=== PATIENT | male | born 1990 | race Caucasian/White ===

== ENCOUNTER 2021-02-24 13:26 | Inpatient (IN) | payer SELFPAY ==
[2021-02-24 13:52] VITALS: BP 120/70; PULSE 106; RESP 18; TEMP 36.6; O2SAT 97; BMI 23.0
--- NOTE | 2021-02-24 14:04 | W.ED.PSYCH ---
HPI - Psych General: Chief Complaint: Psychiatric Symptoms Stated Complaint: MHE - trauma Time Seen by Provider: 02/24/21 14:00 History of Present Illness: HPI Narrative: This patient is a 31-year-old male who presents to the emergency department complaint of auditory hallucinations. Patient states he is always kind of heard music in the background for several years as long as he can remember. But states that November he started hearing voices more distinctly getting more pronounced. Patient states he hears them as if they are in the other room until an each other and argue and threatening to kill him. Patient states is gotten so bad that he at times feels like shooting himself or hanging himself. Patient states that symptoms going on. Patient admits that he had used drugs in the past but mostly just abuses kratom at this time. States after his father he did use of mushrooms and LSD but that was in October of the year. Patient denies any recent use of alcohol or any other drugs. Will do medical evaluation treat as needed MD complaint: suicidal ideation Duration: constant and getting worse Relieving factors: none Exacerbating factors: none Associated symptoms: Reports auditory hallucinations and suicidal ideation; Deny depression Review of Systems General: Reports: 10 or more systems reviewed and unremarkable except in HPI and below Const: Denies: fever(s), chills, body aches or fatigue Eyes: Denies: change in vision or blurry vision ENMT: Denies: throat pain, hoarseness or mouth pain Card: Denies: chest pain, palpitations, irregular heart rhythm, edema, swelling of feet/ankles or lightheadedness Resp: Denies: dyspnea, productive cough, non-productive cough, wheezing or pain on inspiration GI: Denies: abdominal pain, nausea or vomiting : Denies: flank pain, dysuria, urinary frequency, urinary urgency or urinary hesitancy Musc: Denies: neck pain, back pain, extremity pain, extremity swelling, joint pain, joint swelling, joint redness, joint warmth or limited range of motion Skin/Breast: Denies: rash, pruritus, erythema or skin tenderness Neuro: Denies: headache(s), numbness in extremities or weakness in extremities Psych: Reports: paranoia, auditory hallucinations and suicidal ideation; Denies: anxiety or depression Physical Exam Const: COMMON NORMALS: no acute distress, average body habitus, patient oriented x3, no limitations, healthy appearing, alert and well nourished HENMT: COMMON NORMALS: normocephalic, atraumatic, hearing grossly normal bilaterally, external ears normal, EAC's normal, TM's normal bilaterally, Normal external nose present, Normal nasal mucous membranes and turbinates present, moist oral mucous membranes, oropharynx normal, dentition normal and gingiva normal HEAD & SCALP: normocephalic and atraumatic NOSE: Normal external nose present and Normal nasal mucous membranes and turbinates present EXTERNAL EAR: Yes external ears normal EXTERNAL AUDITORY CANAL: EAC's normal TYMPANIC MEMBRANE: TM's normal bilaterally Neck/C-Spine: COMMON NORMALS: full ROM, no lymphadenopathy, supple, no meningeal signs, no JVD, Thyroid normal and No carotid bruits THYROID: Thyroid normal Chest: COMMONS NORMALS: normal inspection of the chest, normal palpation of entire chest wall, normal inspection of the breasts and normal palpation of the breasts Breast/axilla inspection: Yes normal inspection of the breasts BREAST/AXILLA PALPATION: Yes normal palpation of the breasts Resp: COMMON NORMALS: normal respiratory effort, No retractions, No use of accessory muscles, clear to auscultation bilaterally and percussion normal AUSCULTATION: clear to auscultation bilaterally PERCUSSION: percussion normal Cardio: COMMON NORMALS: no JVD, regular rate, regular rhythm, S1 normal heart sound present, S2 normal heart sound present, No gallops present (Cardio), No clicks present (Cardio), No murmurs present (Cardio), No rub (Cardio) and Peripheral pulses 2+ throughout RATE: regular rate RHYTHM: regular rhythm HEART SOUNDS: S1 normal heart sound present and S2 normal heart sound present PERIPHERAL PULSES: Peripheral pulses 2+ throughout GI: COMMON NORMALS: Normal to inspection, nondistended, normoactive bowel sounds present, Soft to palpation, non-tender, No hepatosplenomegaly present, no masses and no bruits PALPATION: Yes Soft to palpation and Yes No hepatosplenomegaly present : COMMON NORMALS: Yes no CVA tenderness BLADDER/KIDNEY EXAM: Yes no CVA tenderness Back/Pelvis: COMMON NORMALS: no CVA tenderness, thoracic and lumbar spine normal to inspection, no thoracic nor lumbar tenderness, thoraco-lumbar ROM normal and straight leg raise negative bilaterally Extremity: COMMON NORMALS: normal to inspection, full ROM, capillary refill normal, no joint enlargement, no clubbing, cyanosis or edema, no calf tenderness and no pedal edema Neuro: COMMON NORMALS: patient oriented x3 SENSORIUM/ORIENTATION: Yes alert MENINGEAL SIGNS: Yes no meningeal signs Psych: COMMON NORMALS: mental status grossly normal and cooperative ATTITUDE: Yes calm THOUGHT CONTENT: Yes Suicidality present and Yes Hallucination(s) present auditory Course Reevaluation(s): Reevaluation #1: Patient is agreeable for admission for suicidal ideation. We also did discuss concerning for possible paranoid schizophrenia and auditory hallucinations. Time: 16:03 Consultations: Consultation #1: I did discuss at length with Dr. Atkinson about findings. Patient is agreeable for admission. Dr. Atkinson accepts him to the neuropsych floor for further evaluation and testing for auditory hallucinations and concerning for possible paranoid schizophrenia. Suicidal ideation. Time: 16:03 Vital Signs: Vital signs: Vital Signs Temperature 97.9 F 02/24/21 13:52 Pulse Rate 106 H 02/24/21 13:52 Respiratory Rate 18 02/24/21 13:52 Blood Pressure 120/70 02/24/21 13:52 Pulse Oximetry 97 02/24/21 13:52 MDM - Psych MDM Narrative: Medical decision making narrative: This patient is a 31-year-old male who presents to the emergency department complaint of auditory hallucinations. Patient states he is always kind of heard music in the background for several years as long as he can remember. But states that November he started hearing voices more distinctly getting more pronounced. Patient states he hears them as if they are in the other room until an each other and argue and threatening to kill him. Patient states is gotten so bad that he at times feels like shooting himself or hanging himself. Patient states that symptoms going on. Patient admits that he had used drugs in the past but mostly just abuses kratom at this time. States after his father he did use of mushrooms and LSD but that was in October of the year. Patient denies any recent use of alcohol or any other drugs. I did discuss at length with Dr. Atkinson about findings. Patient is agreeable for admission. Dr. Atkinson accepts him to the neuropsych floor for further evaluation and testing for auditory hallucinations and concerning for possible paranoid schizophrenia. Suicidal ideation. Lab Data: Labs: Lab Results 02/24/21 02/24/21 02/24/21 Range/Units 14:15 14:15 15:06 WBC 10.3 H (4.0-10.0) 10^3/ uL RBC 4.96 (4.1-5.3) 10^6/u L Hgb 16.0 (11.7-16.6) g/dL Hct 47.4 (42.0-52.0) % MCV 95.6 H (80-94) fL MCH 32.3 (28.0-34.0) pg MCHC 33.8 (30.0-36.0) g/dL RDW 12.9 (12.1-15.1) % Plt Count 228 (130-400) 10^3/c mm MPV 10.5 H (7.4-10.4) fL Neut % (Auto) 74.5 % Lymph % (Auto) 17.2 % [place] % (Auto) 7.7 % Eos % (Auto) 0.1 % Baso % (Auto) 0.2 % Neut # (Auto) 7.70 (1.8-7.7) 10^3/u L Lymph # (Auto) 1.8 (0.8-4.8) 10^3/u L [place] # (Auto) 0.8 (0.2-0.9) 10^3/u L Eos # (Auto) 0.0 (0.0-0.8) 10^3/u L Baso # (Auto) 0.0 (0.0-0.1) 10^3/u L Nucleated RBC % (a uto) 0 % Nucleated RBCs # 0.0 /100WBC Sodium 144 (136-145) mmol/L Potassium 3.9 (3.5-5.1) mmol/L Chloride 105 (98-107) mmol/L Carbon Dioxide 27 (22-29) mmol/L Anion Gap 15.9 (5-19) BUN 6 (6-20) mg/dL Creatinine 0.8 (0.7-1.2) mg/dL GFR Calculation 112.0 (90-130) mL/min Glucose 71 (65-115) mg/dL Calculated Osmolal ity 294 (285-295) mOsm/k g Calcium 9.1 (8.5-10.5) mg/dL Total Bilirubin 0.5 (0.15-1.2) mg/dL AST 13 (0-40) U/L ALT 10 (0-41) U/L Alkaline Phosphata se 73 (40-130) IU/L Total Protein 6.9 (6.6-8.7) g/dL Albumin 4.3 (3.5-5.2) g/dL Globulin 2.6 (1.3-4.6) g/dL TSH 0.64 (0.27-4.20) uIU/ mL Urine Color Straw (Yellow) Urine Appearance Clear (CLEAR) Urine pH 5 (5-7) Ur Specific Gravit y 1.020 (1.005-1.030) Urine Protein Neg (Negative) Urine Glucose (UA) Norm (Normal) Urine Ketones Negative (Negative) Urine Blood Neg (Negative) Urine Nitrate Negative (Negative) Urine Bilirubin 1+ H (Negative) Urine Urobilinogen 1 H (Negative) mg/dL Ur Leukocyte Rafaela ase Negative (Negative) Salicylates < 0.3 L (3-10) mg/dL Urine Opiates Scre en (Negative) ng/mL Acetaminophen < 5.0 L (10-30) ug/mL Ur Barbiturates Sc reen (Negative) ng/mL Ur Phencyclidine S crn (Negative) ng/mL Ur Amphetamines Sc reen (Negative) ng/mL U Benzodiazepines Scrn (Negative) ng/mL Urine Cocaine Scre en (Negative) ng/mL U Marijuana (THC) Screen (Negative) ng/mL Ethyl Alcohol < 10 (0-10) mg/dL 02/24/21 Range/Units 15:06 WBC (4.0-10.0) 10^3/ uL RBC (4.1-5.3) 10^6/u L Hgb (11.7-16.6) g/dL Hct (42.0-52.0) % MCV (80-94) fL MCH (28.0-34.0) pg MCHC (30.0-36.0) g/dL RDW (12.1-15.1) % Plt Count (130-400) 10^3/c mm MPV (7.4-10.4) fL Neut % (Auto) % Lymph % (Auto) % [place] % (Auto) % Eos % (Auto) % Baso % (Auto) % Neut # (Auto) (1.8-7.7) 10^3/u L Lymph # (Auto) (0.8-4.8) 10^3/u L [place] # (Auto) (0.2-0.9) 10^3/u L Eos # (Auto) (0.0-0.8) 10^3/u L Baso # (Auto) (0.0-0.1) 10^3/u L Nucleated RBC % (a uto) % Nucleated RBCs # /100WBC Sodium (136-145) mmol/L Potassium (3.5-5.1) mmol/L Chloride (98-107) mmol/L Carbon Dioxide (22-29) mmol/L Anion Gap (5-19) BUN (6-20) mg/dL Creatinine (0.7-1.2) mg/dL GFR Calculation (90-130) mL/min Glucose (65-115) mg/dL Calculated Osmolal ity (285-295) mOsm/k g Calcium (8.5-10.5) mg/dL Total Bilirubin (0.15-1.2) mg/dL AST (0-40) U/L ALT (0-41) U/L Alkaline Phosphata se (40-130) IU/L Total Protein (6.6-8.7) g/dL Albumin (3.5-5.2) g/dL Globulin (1.3-4.6) g/dL TSH (0.27-4.20) uIU/ mL Urine Color (Yellow) Urine Appearance (CLEAR) Urine pH (5-7) Ur Specific Gravit y (1.005-1.030) Urine Protein (Negative) Urine Glucose (UA) (Normal) Urine Ketones (Negative) Urine Blood (Negative) Urine Nitrate (Negative) Urine Bilirubin (Negative) Urine Urobilinogen (Negative) mg/dL Ur Leukocyte Rafaela ase (Negative) Salicylates (3-10) mg/dL Urine Opiates Scre en Negative (Negative) ng/mL Acetaminophen (10-30) ug/mL Ur Barbiturates Sc reen Negative (Negative) ng/mL Ur Phencyclidine S crn Negative (Negative) ng/mL Ur Amphetamines Sc reen Negative (Negative) ng/mL U Benzodiazepines Scrn Negative (Negative) ng/mL Urine Cocaine Scre en Negative (Negative) ng/mL U Marijuana (THC) Screen Positive H (Negative) ng/mL Ethyl Alcohol (0-10) mg/dL Discharge Plan Discharge Patient Disposition: Placed in Observation Clinical Impression: Suicidal ideation, Auditory hallucinations Condition: Stable Prescriptions: No Action No Known Home Medications RF: 0 Coding Level of Care Code ED General Repair Mechanic for Silvio Fwd Exam Comprehensive
[2021-02-24 14:26] LABS: Basophils % 0.2 %; Eosinophils % 0.1 %; Hematocrit 47.4 % (42.0-52.0); Lymphocytes # 1.8 10^3/uL (0.8-4.8); Lymphocytes % 17.2 %; Mean Corpuscular HGB Conc 33.8 g/dL (30.0-36.0); Mean Corpuscular Hemoglobin 32.3 pg (28.0-34.0); Mean Corpuscular Volume 95.6 fL (80-94); Mean Platelet Volume 10.5 fL (7.4-10.4); Monocytes # 0.8 10^3/uL (0.2-0.9); Monocytes % 7.7 %; Neutrophils % 74.5 %; Nucleated Red Blood Cells % 0 %; Platelet Count 228 10^3/cmm (130-400); Red Blood Count 4.96 10^6/uL (4.1-5.3); Red Cell Distribution Width 12.9 % (12.1-15.1); White Blood Count 10.3 10^3/uL (4.0-10.0)
[2021-02-24 15:07] LABS: Alanine Aminotransferase 10 U/L (0-41); Albumin Level 4.3 g/dL (3.5-5.2); Alkaline Phosphatase 73 IU/L (40-130); Anion Gap 15.9 (5-19); Aspartate Amino Transferase 13 U/L (0-40); Blood Urea Nitrogen 6 mg/dL (6-20); Calcium 9.1 mg/dL (8.5-10.5); Carbon Dioxide 27 mmol/L (22-29); Chloride 105 mmol/L (98-107); Globulin 2.6 g/dL (1.3-4.6); Glucose 71 mg/dL (65-115); Osmolality Calculated 294 mOsm/kg (285-295); Potassium 3.9 mmol/L (3.5-5.1); Sodium 144 mmol/L (136-145); Thyroid Stimulating Hormone 0.64 uIU/mL (0.27-4.20); Total Bilirubin 0.5 mg/dL (0.15-1.2); Total Protein 6.9 g/dL (6.6-8.7)
[2021-02-24 15:20] LABS: Acetaminophen < 5.0 ug/mL (10-30); Alcohol Level < 10 mg/dL (0-10); Salicylate < 0.3 mg/dL (3-10)
[2021-02-24 15:23] LABS: Add Urine Microscopic? NO; Charge for UA Resulting for Rev
[2021-02-24 15:30] LABS: Urine Appearance Clear (CLEAR); Urine Color Straw (Yellow); pH Urine 5 (5-7)
[2021-02-24 15:31] LABS: Bilirubin Urine 1+ (Negative); Blood Urine Neg (Negative); Glucose Urine UA Norm (Normal); Ketones Urine Negative (Negative); Leukocyte Esterase Urine Negative (Negative); Nitrate Urine Negative (Negative); Protein Urine Neg (Negative); Urobilinogen Urine 1 mg/dL (Negative)
[2021-02-24 15:34] LABS: Amphetamines Screen Urine Negative (Negative); Barbiturates Screen Urine Negative (Negative); Benzodiazepines Screen Urine Negative (Negative); Cocaine Screen Urine Negative (Negative); Opiate Screen Urine Negative (Negative); PCP Screen Urine Negative (Negative); THC Screen Urine Positive (Negative)
[2021-02-24 16:36] VITALS: RESP 18; TEMP 36.6; O2SAT 97
[2021-02-24 16:59] VITALS: BP 106/68; PULSE 111; RESP 18; TEMP 36.9; O2SAT 96
[2021-02-24 22:00] VITALS: BP 96/59; PULSE 65; RESP 20; TEMP 36.8; O2SAT 96
[2021-02-25 06:00] VITALS: BP 110/72; PULSE 76; RESP 18; TEMP 36.8; O2SAT 98
[2021-02-25] MEDS: nicotine 2 mg Gum BUCCAL ×3 (11:45→19:11)
[2021-02-25 14:00] VITALS: BP 100/64; PULSE 80; RESP 18; TEMP 36.3; O2SAT 97
--- NOTE | 2021-02-25 14:10 | PM.NHP ---
Providers/Chief Complaint Admitting Physician: Puma Atkinson MD Chief Complaint: MHE - trauma HPI NPU History of Present Illness Bret Batista is a 31 year old male who presented to the emergency department the following report: Chief Complaint: Psychiatric Symptoms Stated Complaint: MHE - trauma Time Seen by Provider: 02/24/21 14:00 History of Present Illness: HPI Narrative: This patient is a 31-year-old male who presents to the emergency department complaint of auditory hallucinations. Patient states he is always kind of heard music in the background for several years as long as he can remember. But states that November he started hearing voices more distinctly getting more pronounced. Patient states he hears them as if they are in the other room until an each other and argue and threatening to kill him. Patient states is gotten so bad that he at times feels like shooting himself or hanging himself. Patient states that symptoms going on. Patient admits that he had used drugs in the past but mostly just abuses kratom at this time. States after his father he did use of mushrooms and LSD but that was in October of the year. Patient denies any recent use of alcohol or any other drugs. Will do medical evaluation treat as needed complaint: suicidal ideation Duration: constant and getting worse Relieving factors: none Exacerbating factors: none Associated symptoms: Reports auditory hallucinations and suicidal ideation; Deny depression. He presented to the neuropsychiatric for definitive treatment of those issues. He presents today reporting that he has had 3 past psychiatric hospitalizations here records do show that to be accurate between the years of 2007 in 2017. He denies significant outpatient services but there are some records from visits he had. Particularly in assessment from 01/30/2017 is included below for context. He denies substantive changes since that evaluation. He reports he smokes a pack of cigarettes to 2 pack cigarettes a day if he stressed reports drinking alcohol sometimes and having them on a but none recently he denies any other illicit drug use. He never had a DUI or been to a rehab. His UDS was notably positive for cannabis. He reports a history of a suicide attempt occurred in the past but he was reportedly drunk and did not remember his behaviors. He reports that some of the challenges that bring him here today is that he had a overwhelmed run of losses related to general illness and Covid with multiple family members dying of Covid, his mother recently passing away and him just feeling overwhelmed with an existential crisis and the prospect of living in this area alone. We discussed the risks, benefits and alternatives of considering Zyprexa for his voices and he understood and agreed to consider it as is documented in this note. Per his 01/30/2017 [facility] outpatient evaluation: In: 1000 Out: 1052 Settings: Office Patient Marital Status: Patient Sex: male Patient Race: Sexual Orientation: Heterosexual [place]erral [place] [facility] [facility] [place] History Primary Care Provider None reported Other Healthcare Providers: None reported Last Physical Exam: Unknown Current Medications None stopped taking them 4 days ago because of the side effects. Food/Drug Allergies: Coded Allergies: TRAZODONE (Verified Allergy, Unknown, 01/10/17) Adverse Reaction to Medication Trazadone Client's Medical History: Surgical Procedure (tubes in ears, broken arms, tonsils) Complementary Health Approach None reported [facility] Assessment 8 10/30/16 Psychosocial History Chief Complaint Client reports: followup from hospital . History of Present Illness: been hospitalized 3 times before, was in there recently, cry easily, have anxiety frequently, started when I was a child, lost mother at age 15 not sure if it was suicide or a overdose,turned to alcohol to help calm me down and it became a habit, restless and on edge, don't sleep very good, low energy, easily distracted, get annoyed at others easily, irritable, certain situations really set off the anxiety, even as a child I would get to shaking so bad I would get sent home, when I was hospitalized my old lady had left and I went on a perez, racing thoughts, life was going well until 4 weeks ago, that was when she left with children and drained bank account and went to [place], I lost my job, because of getting thrown in [employer], had a nice home. Childhood/Family History: Individual Served reports pertinent childhood/family history to include had a crazy childhood was passed around alot, mom and dad would take off with me, raised here part of the time, 2 brothers and 2 sisters, estranged from and children right now . Current/History Abuse/Trauma: None Reported Details of Abuse/Trauma: None reported [facility] Assessment 9 10/30/16 Psychosocial History History: Client denies service Cultural Background NA Level of Completed Education: GED Completed History of Education Dropped out in 11th grade because I moved around so much, obtained my GED. 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 Legal Status/History: Current legal issues reported Legal Issues Reported: Other (restraining order) Ability to Care for Self: Reports being able to care for self Current Living Environment: Parent/Immediate Family Social/Peer Setting: Family Spiritual Pursuits: Nonreligious/Secular Leisure/Recreational: write, musician, play guitar. Community Resources: Utilizing Family, Utilizing Friends, Utilizing School Individual's Obstacles: Limited Income, Chaotic Lifestyle, Poor Support System Individual Needs: need to get stable again. Individual's Strengths/Skills: Cooperative, Seeks Treatment, Articulate, Creative, Sense of Humor, Insightful, Open Minded Family Psychiatric History: Other (Alzheimers) Meds NPU Home Medications Medication Instructions Recorded Confirmed Last Taken Type No Known Home Medications 02/24/21 02/24/21 Unknown History Allergies Allergy/AdvReac Type Severity Reaction Status Date / Time trazodone Allergy Unknown Unknown Verified 02/24/21 14:44 Mental Status Exam MSE Comments: This is a well-nourished, well-developed white male in hospital scrubs with adequate grooming and eye contact. No abnormal movements except for mild psychomotor retardation. Cooperative with exam in mild distress. Speech was decreased rate and volume. Mood described as depressed, affect odd. Thought process organized, thought: Patient denied current suicidal or homicidal ideation, there were no delusions reported but some guardedness and paranoia seems present, he endorsed auditory hallucinations. Attention and concentration appeared intact and memory appeared reliable but none were formally tested. He is alert and oriented x3. Insight and judgment are limited impulse control is limited. Vitals/I&O/Wt Last Vital Signs Temp 97.3 F L 02/25/21 14:00 Pulse 80 02/25/21 14:00 Resp 18 02/25/21 14:00 BP 100/64 02/25/21 14:00 Pulse Ox 97 02/25/21 14:00 Weight last 48 hrs Weight 74.843 kg Data NPU : 02/24/21 14:15 02/24/21 14:15 A&P Assessment and plan (1) Suicidal ideation: Status: Acute (2) Auditory hallucinations: Status: Acute (3) Psychosis: Status: Acute (4) Bereavement: Status: Acute Additional A&P Information This is a 31-year-old white male with a long history of auditory hallucinations and history of inpatient services with limited outpatient services here in [place] who presents with recent losses and increasing intensity of his perceptual disturbances considering medication. 1. Continue current medication. 2. Continue every 15 minute checks for safety. 3. Encourage individual, group and milieu therapies. 4. Encourage sober living treatment after discharge at the highest level of care to which he is willing to commit. Involuntary Hold Information 96 Hour Hold: 96 Hour Involuntary Admission: No Attestations NPU Medical Necessity Statement*: Inpatient hospitalization is medically necessary and the clinically appropriate intervention at this time. We will monitor medications and make changes as indicated. Patient will be in the hospital for over two midnights. Likely length of stay 3 to 5 days. Coding Level of Care Code Acute Manager Search for Silvio Ramirez Diagnoses Suicidal ideation R45.851 Auditory hallucinations R44.0 Psychosis F29 Bereavement Z63.4
[2021-02-25] MEDS: OLANZapine 5 mg ODT PO (20:48)
[2021-02-25] MEDS: hyDROXYzine 25 mg Capsule 50 MG PO (20:48)
[2021-02-25 22:00] VITALS: BP 121/73; PULSE 85; RESP 18; TEMP 36.6; O2SAT 98
--- NOTE | 2021-02-25 22:49 | PC.NURSE ---
A, pt requested something for sleep and anxiety please . Trazodone 50mg po and Vistaril 50mg po given at that time. pt is now resting quietly with both eyes closed.
[2021-02-26 06:00] VITALS: BP 99/60; PULSE 63; RESP 15; TEMP 36.4; O2SAT 97
[2021-02-26] MEDS: nicotine 2 mg Gum BUCCAL (12:52)
[2021-02-26 14:00] VITALS: BP 113/69; PULSE 90; RESP 20; TEMP 36.5; O2SAT 99
[2021-02-26] MEDS: hyDROXYzine 25 mg Capsule 50 MG PO (14:38)
--- NOTE | 2021-02-26 14:40 | PC.NURSE ---
PRN VISTARIL 50 MG GIVEN PO PER PT C/O ANXIETY. WILL CONT TO MONITOR.
[2021-02-26] MEDS: OLANZapine 5 mg ODT PO (15:24)
--- NOTE | 2021-02-26 15:25 | PC.NURSE ---
PRN ZYPREXA ZYDIS, 5 MG GIVEN PO PER PHYSICIAN ORDER.
--- NOTE | 2021-02-26 17:55 | PM.NPN ---
Subjective NPU Subjective: Interval history: Bret presents today reporting that he is doing okay. We we will wait to see improvement except he is hopeful. He reports a as needed medication that he had been just okay. He reports that he really wants to feel better and get rid of the voices though he says he may miss the music. He is eating okay, but sleep still has something to be desired. Mental Status Exam MSE Comments: This is a well-nourished, well-developed white male in hospital scrubs with adequate grooming and eye contact. No abnormal movements except for mild psychomotor retardation. Cooperative with exam in mild distress. Speech was decreased rate and volume. Mood described as depressed, affect odd. Thought process organized, thought: Patient denied current suicidal or homicidal ideation, there were no delusions reported but some guardedness and paranoia seems present, he endorsed auditory hallucinations. Attention and concentration appeared intact and memory appeared reliable but none were formally tested. He is alert and oriented x3. Insight and judgment are limited impulse control is limited. Vitals/I&O/Wt Last Vital Signs Temp 98.6 F 02/26/21 20:34 Pulse 71 02/26/21 20:34 Resp 16 02/26/21 20:34 BP 109/57 02/26/21 20:34 Pulse Ox 96 02/26/21 20:34 Data NPU : 02/24/21 14:15 02/24/21 14:15 A&P Additional A&P Information (1) Suicidal ideation: (2) Auditory hallucinations: (3) Psychosis: (4) Bereavement: Additional A&P Information This is a 31-year-old white male with a long history of auditory hallucinations and history of inpatient services with limited outpatient services here in [place] who presents with recent losses and increasing intensity of his perceptual disturbances considering medication. 1. Continue current medication. 2. Continue every 15 minute checks for safety. 3. Encourage individual, group and milieu therapies. 4. Encourage sober living treatment after discharge at the highest level of care to which he is willing to commit. Involuntary Hold Information 96 Hour Hold: 96 Hour Involuntary Admission: No Attestations NPU Medical Necessity Statement*: Inpatient hospitalization is medically necessary and the clinically appropriate intervention at this time. We will monitor medications and make changes as indicated. Likely length of stay 2-4 days. Coding Level of Care Code Acute Global Human Resources Director for Chg Fwd
[2021-02-26 20:34] VITALS: BP 109/57; PULSE 71; RESP 16; TEMP 37; O2SAT 96
[2021-02-26] MEDS: OLANZapine 10 mg TABLET PO (21:21)
[2021-02-27 06:00] VITALS: BP 100/64; PULSE 62; RESP 16; TEMP 36.6; O2SAT 97
[2021-02-27] MEDS: nicotine 2 mg Gum BUCCAL ×2 (08:13→11:08)
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
[2021-02-27 13:09] VITALS: BP 100/64; PULSE 62; RESP 16; TEMP 36.6; O2SAT 97
== END 2021-02-27 13:12 | disposition home or self-care (01) | DRG 885 ==
LOC: ER 16:37 → NP 02-25 13:01
PROVIDERS: Admitting Provider Psychiatry & Neurology Psychiatry; Emergency Provider Emergency Medicine; Visit Provider Psychiatry & Neurology Psychiatry
DX: F29 Unspecified psychosis not due to a substance or known physiological condition (principal); R45.851 Suicidal ideations; F17.210 Nicotine dependence, cigarettes, uncomplicated; F10.10 Alcohol abuse, uncomplicated; F12.90 Cannabis use, unspecified, uncomplicated; Z63.4 Disappearance and death of family member
CPT/HCPCS: 80053; 80306; 80307; 81003; 84443; 85025; 99285; G0378

== ENCOUNTER 2021-06-23 01:36 | Inpatient (IN) | payer MEDICAID, SELFPAY ==
[2021-06-23 01:42] VITALS: BP 116/82; PULSE 95; RESP 18; TEMP 36.8; O2SAT 97; BMI 24.4
[2021-06-23 02:42] LABS: Basophils % 0.3 %; Hematocrit 44.9 % (42.0-52.0); Hemoglobin 15.6 g/dL (11.7-16.6); Lymphocytes # 2.9 10^3/uL (0.8-4.8); Lymphocytes % 38.9 %; Mean Corpuscular HGB Conc 34.7 g/dL (30.0-36.0); Mean Corpuscular Hemoglobin 31.8 pg (28.0-34.0); Mean Corpuscular Volume 91.4 fl (80-94); Mean Platelet Volume 10.9 fL (7.4-10.4); Monocytes # 0.7 10^3/uL (0.2-0.9); Monocytes % 9.3 %; Neutrophils # 3.75 10^3/uL (1.8-7.7); Neutrophils % 51.2 %; Nucleated Red Blood Cells % 0 %; Platelet Count 191 10^3/cmm (130-400); Red Blood Count 4.91 10^6/uL (4.1-5.3); Red Cell Distribution Width 13.3 % (12.1-15.1); White Blood Count 7.3 10^3/uL (4.0-10.0)
[2021-06-23 03:07] LABS: Alanine Aminotransferase 8 U/L (0-41); Albumin Level 4.2 g/dL (3.5-5.2); Alkaline Phosphatase 62 IU/L (40-130); Anion Gap 15.1 (5-19); Aspartate Amino Transferase 8 U/L (0-40); Blood Urea Nitrogen 12 mg/dL (6-20); Calcium 9.1 mg/dL (8.5-10.5); Carbon Dioxide 23 mmol/L (22-29); Chloride 104 mmol/L (98-107); Creatinine Clr Calc Pharmacy 144.2468; Globulin 2.4 g/dL (1.3-4.6); Glucose 126 mg/dL (65-115); Osmolality Calculated 287 mOsm/kg (285-295); Potassium 4.1 mmol/L (3.5-5.1); Salicylate 0.5 mg/dL (3-10); Sodium 138 mmol/L (136-145); Total Bilirubin 0.3 mg/dL (0.15-1.2); Total Protein 6.6 g/dL (6.6-8.7)
[2021-06-23 03:10] LABS: Acetaminophen < 5.0 ug/mL (10-30); Alcohol Level < 10 mg/dL (0-10)
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
[2021-06-23 05:19] VITALS: BP 119/72; PULSE 92; RESP 16; O2SAT 97
[2021-06-23 05:38] VITALS: BP 105/71; PULSE 72; RESP 17; TEMP 36.5; O2SAT 97
[2021-06-23 06:00] VITALS: BP 105/71; PULSE 72; RESP 17; TEMP 36.5; O2SAT 97
--- NOTE | 2021-06-23 06:33 | PC.NURSE ---
Admission note. Patient arrived to unit on 96 hour hold d/t psychosis. Patient states he is unsure why he is here, he was walking down the road and copper tapper picked him up. States copper tapper told him that Mom called about him yesterday. Patient tense and irritable at this time but did answer assessment questions. Answers short, one word answers. Poor eye contact, minimal interaction. Denies SI/HI or AVH. Reports recreational use of meth. Unable to state last use or how often, did say 1 gm/wk. Daily use of Cratum with last use a few days ago.
--- NOTE | 2021-06-23 09:39 | PC.NURSE ---
PATIENT MILDLY AGITATED, ON PHONE WITH FAMILY MEMBER. HAS A COPY OF HIS PATIENT RIGHTS REGARDING HIS 96 HOUR HOLD AND IS REQUESTING THE REASON AND PROOF OF WHY HE IS IN THE HOSPITAL. COPY OF AFFIDAVIT GIVEN TO PATIENT.
[2021-06-23] MEDS: nicotine 21 mg Patch 1 PATCH TRANSDERMA (10:12)
--- NOTE | 2021-06-23 12:32 | PC.NURSE ---
PATIENT AGREED TO TAKE A PHONE CALL FROM HIS SISTER-MAX. HE ALSO WANTED HER ADDED TO HIS RIGO LIST.
--- NOTE | 2021-06-23 12:32 | PC.NURSE ---
PATIENT CONTINUES TO BECOME EASILY AGITATED OVER THE STATUS OF HIS HIS ADMISSION. HE DOES NOT FEEL HE SHOULD BE HERE AND IS BEING HELD AGAINST HIS WILL. HE HAS BEEN GIVEN A COPY OF HIS 96 HOUR PAPERWORK, AFFIDAVIT AND PATIENT RIGHTS. HE CALMS AND RETURNS TO HIS ROOM.
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
[2021-06-23 14:00] VITALS: BP 127/78; PULSE 96; RESP 17; TEMP 36.6; O2SAT 97
--- NOTE | 2021-06-23 15:23 | P.HP_ITS ---
Providers/Chief Complaint Admitting Physician: Antonio Arizmendi MD Chief Complaint: 96 hour hold? HPI NPU History of Present Illness Bret Batista is a 31 year old male who was hospitalized here 4 months ago at the end of January 2021 with complaints of auditory hallucinations. He was admitted to the NPU after being brought in to the ED yesterday by the police because he had paranoid delusions and thoughts as well as plans to kill people he felt were stalking him. The ED note states: 31-year-old male with a history of substance abuse and psychosis was picked up by police this morning. The patient complained police of acquaintances stalking him. He told the officer that they had buried routers around to track him and shoot microwaves at him. He then threatened to kill these acquaintances. The patient denies any recent illness, fever, etc. The patient is quite guarded in his presentation. At one point he tells me that he is not going to describe what he is experiencing because if I try to explain that I sound crazy. It is not a hallucination, and I do not want to take medicine. However he does say that there are people who tell him that something is going to happen, and then it does happen. For instance, he says they may tell him that someone will come to his house singing, and then they do. He says that these people, which are likely auditory hallucinations, told him that he was going to get arrested by the police yesterday, and then he did. He does tell me that the mother f----rs follow me up there [to work] so I cannot go there anymore. The police won't investigate it. The patient denies current alcohol use. He says he uses methamphetamines recreationally to get out of bed. He says he also uses kratom on a daily basis but asserts that the kratom is not the cause of his fears of the stalkers. He denies other current drug use. He says he smokes 1 pack of cigarettes per day. The affidavit from Officer Brendan Sepulveda states that the patient told the officer he was being stalked by a group of people from [place]. He told the officer he was not wearing shoes as they were tracking his shoes and electrifying the shoes as he walked. He told the officer that the individuals that were stalking him had buried routers all over town and that they were using body scanners on everyone and making them go crazy. He further said that the stalkers were using lasers and infrared to attempt to burn down houses that he is in and that he watched them electrify his son. He said all this was happening right now, and said that they just blinded him with the laser at that moment. He tried to point out to the officer where they were standing, but the officer saw no one there. The patient told the officer that he was going to find the people and kill them as it was the only way to stop them from stalking the entire town. When the officer asked him again, he stated he was going to kill the 2 males that were stalking him. The patient's sister called the unit and spoke to the nurse, as documented in the EHR. She says he is afraid to take his psychiatric medicine because of an incident in which his blood pressure dropped and he felt like he was dying. She said he fired a gun in her house about 4 weeks ago, and then thought he had shot and killed someone. She said that when he got out of the hospital after his last 96-hour hold, he threw himself on the train track. She says that this past week he was talking to his son about a group of people who were stalking him and telling him to sacrifice himself. He is afraid to be in the sunlight because the rays are laser beams which will kill him. He says that the floors of his sister's house will electrocute him. She is afraid that if he is released from the hospital too soon something bad is going to happen to him or someone else. His sister is also concerned that he has not addressed the grief from his father's in August 2020 and both grandparents in May and May 2020. Past medical history: The patient denies any medical issues or past surgeries. Family history: The patient says his maternal grandfather committed suicide before the patient was born. Social history: The patient says he was born in [place], [place] and dropped out of school in the 11th grade so he could play in a band in the [place] area. He eventually got his GED. He has been twice and is from his second . He says he has 1 son who is 5 years old, and he shares joint custody with his . He says his son spends half of his time with him. He says he is unable to work because of the stalking described above. Admission information from 02/25/2021 is included here for further context: HPI Narrative from ED: This patient is a 31-year-old male who presents to the emergency department complaint of auditory hallucinations. Patient states he is always kind of heard music in the background for several years as long as he can remember. But states that November he started hearing voices more distinctly getting more pronounced. Patient states he hears them as if they are in the other room until an each other and argue and threatening to kill him. Patient states is gotten so bad that he at times feels like shooting himself or hanging himself. Patient states that symptoms going on. Patient admits that he had used drugs in the past but mostly just abuses kratom at this time. States after his father he did use of mushrooms and LSD but that was in October of the year. Patient denies any recent use of alcohol or any other drugs. Will do medical evaluation treat as needed Dr Atkinson' note: He presented to the neuropsychiatric for definitive treatment of those issues. He presents today reporting that he has had 3 past psychiatric hospitalizations here records do show that to be accurate between the years of 2007 in 2016. He denies significant outpatient services but there are some records from visits he had. Particularly in assessment from 01/30/2017 is included below for context. He denies substantive changes since that evaluation. He reports he smokes a pack of cigarettes to 2 pack cigarettes a day if he stressed reports drinking alcohol sometimes and having them on a but none recently he denies any other illicit drug use. He never had a DUI or been to a rehab. His UDS was notably positive for cannabis. He reports a history of a suicide attempt occurred in the past but he was reportedly drunk and did not remember his behaviors. He reports that some of the challenges that bring him h ere today is that he had a overwhelmed run of losses related to general illness and Covid with multiple family members dying of Covid, his mother recently passing away and him just feeling overwhelmed with an existential crisis and the prospect of living in this area alone. We discussed the risks, benefits and alternatives of considering Zyprexa for his voices and he understood and agreed to consider it as is documented in this note. Per his 01/30/2017 [facility] outpatient evaluation: In: 1000 Out: 1052 Settings: Office Patient Marital Status: Patient Sex: male Patient Race: Sexual Orientation: Heterosexual Referral Source [facility] [place] [facility] Medical History Primary Care Provider None reported Other Healthcare Providers: None reported Last Physical Exam: Unknown Current Medications None stopped taking them 4 days ago because of the side effects. Food/Drug Allergies: Coded Allergies: TRAZODONE (Verified Allergy, Unknown, 01/10/17) Adverse Reaction to Medication Trazadone Client's Medical History: Surgical Procedure (tubes in ears, broken arms, tonsils) Complementary Health Approach None reported [facility] Assessment 8 10/30/16 Psychosocial History Chief Complaint Client reports: followup from hospital . History of Present Illness: been hospitalized 3 times before, was in there recently, cry easily, have anxiety frequently, started when I was a child, lost mother at age 15 not sure if it was suicide or a overdose,turned to alcohol to help calm me down and it became a habit, restless and on edge, don't sleep very good, low energy, easily distracted, get annoyed at others easily, irritable, certain situations really set off the anxiety, even as a child I would get to shaking so bad I would get sent home, when I was hospitalized my old lady had left and I went on a perez, racing thoughts, life was going well until 4 weeks ago, that was when she left with children and drained bank account and went to [place], I lost my job, because of getting thrown in snf, had a nice home. Childhood/Family History: Individual Served reports pertinent childhood/family history to include had a crazy childhood was passed around alot, mom and dad would take off with me, ra ised here part of the time, 2 brothers and 2 sisters, estranged from and children right now . Current/History Abuse/Trauma: None Reported Details of Abuse/Trauma: None reported [facility] Assessment 9 10/30/16 Psychosocial History History: Client denies service Cultural Background NA Level of Completed Education: GED Completed History of Education Dropped out in 11th grade because I moved around so much, obtained my GED. 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 Legal Status/History: Current legal issues reported Legal Issues Reported: Other (restraining order) Ability to Care for Self: Reports being able to care for self Current Living Environment: Parent/Immediate Family Social/Peer Setting: Family Spiritual Pursuits: Nonreligious/Secular Leisure/Recreational: write, musician, play guitar. Community Resources: Utilizing Family, Utilizing Friends, Utilizing School Individual's Obstacles: Limited Income, Chaotic Lifestyle, Poor Support System Individual Needs: need to get stable again. Individual's Strengths/Skills: Cooperative, Seeks Treatment, Articulate, Creative, Sense of Humor, Insightful, Open Minded Family Psychiatric History: Other (Alzheimers) Meds NPU Home Medications Medication Instructions Recorded Confirmed Last Taken Type No Known Home Medications 02/24/21 06/23/21 Unknown History Allergies Allergy/AdvReac Type Severity Reaction Status Date / Time trazodone Allergy Unknown Unknown Verified 02/24/21 14:44 Mental Status Exam MSE Comments: I met with the patient in his room with the door open, and he was dressed in hospital scrubs and sloppily groomed. He was quite guarded in his presentation and not wanting to talk about the things that he is afraid of because I will think that he is crazy. He made fairly good eye contact. No psychomotor agitation or retardation Speech is at a regular rate and rhythm, normal volume, good articulation, not pressured Alert, oriented to person, place, time, and situation Attention and concentration were intact to exam Memory is adequate for the interview Mood is okay. Affect is irritable and suspicious. Thought process is logical and goal-directed. Thought content: From collateral information, it is apparent that the patient has both auditory and visual hallucinations, as well as paranoid delusions of persecution. He denies suicidal ideation and homicidal ideation. Insight and judgment are pared by psychosis. Impulse control is impaired by psychosis as well. Vitals/I&O/Wt Last Vital Signs Temp 97.9 F 06/23/21 14:00 Pulse 96 06/23/21 14:00 Resp 17 06/23/21 14:00 BP 127/78 06/23/21 14:00 Pulse Ox 97 06/23/21 14:00 Weight last 48 hrs Weight 79.379 kg Weight 79.379 kg Data NPU : 06/23/21 02:35 06/23/21 02:35 A&P Assessment and plan (1) Acute psychosis: Status: Acute (2) Homicidal ideation: Status: Acute (3) Bereavement: Status: Acute (4) Auditory hallucinations: Status: Acute Additional A&P Information This is a 31 year old male who was hospitalized here 4 months ago at the end of January 2021 with complaints of auditory hallucinations. He was admitted to the NPU yesterday after being brought in to the ED by the police because he had paranoid delusions and thoughts as well as plans to kill people he felt were s talking him. He does say he has been using methamphetamines. His psychosis may be due to schizophrenia or may be substance-induced. In either case, in order to recover from the psychosis, he will need to abstain from using intoxicants, and may need antipsychotic medication which she is unwilling to take at this time. His psychosis makes him dangerous to others. RECOMMENDATION AND PLAN: 1. Patient is unwilling to take medication. He disputes the fact that he needs to stay here. 2. Continue every 15 minute checks for safety. 3. Encourage individual, group and milieu therapies. 4. Encourage sober living treatment after discharge at the highest level of care to which he is willing to commit. 5. He is on a 96-hour hold, and we will need to file a petition for a 21-day hold if his psychosis does not resolve by the time the 96-hour hold is up. Involuntary Hold Information 96 Hour Hold: 96 Hour Involuntary Admission: Yes 96 Hour Hold Ending Date: 06/28/21 96 Hour Hold Ending Time: 00:01 Attestations NPU Medical Necessity Statement*: Psychiatric hospitalization is medically necessary to prevent access to lethal means, to reevaluate medication, and to coordinate a safe discharge. Patient will be in the hospital for over 2 midnights. Likely length of stay is 5-7 days. Coding Level of Care Code Acute Glass Forming Crew Member for Silvio Ramirez Diagnoses Acute psychosis F23 Homicidal ideation R45.850 Bereavement Z63.4 Auditory hallucinations R44.0
[2021-06-23 20:27] VITALS: BP 119/78; PULSE 86; RESP 18; TEMP 36.9; O2SAT 98
[2021-06-23] MEDS: hyDROXYzine 25 mg Capsule 50 MG PO (21:11)
--- NOTE | 2021-06-24 00:21 | PC.NURSE ---
Upon assessment patient lying in bed. Patient groggy,oriented. Patient denied any depression but stated he does have some anxiety off and on . He denies any other complaints. Patient has fair eye contact and appears sleepy. Will continue to monitor and follow plan of care. q 15 min safety checks per protocol.
[2021-06-24 06:00] VITALS: BP 94/56; PULSE 75; RESP 17; TEMP 36.8; O2SAT 98
[2021-06-24 14:00] VITALS: BP 126/74; PULSE 101; RESP 18; TEMP 37; O2SAT 100
[2021-06-24] MEDS: nicotine 2 mg Gum BUCCAL (14:18)
--- NOTE | 2021-06-24 18:11 | P.PN_ITS ---
Subjective NPU Subjective: Interval history: I met with the patient on the bench by the nurses station. His main focus was on the injustice of being hospitalized. When I tried to talk to him about the delusional ideas he was admitted for, he had a number of explanations of why these are real. He completely rejects the idea that he has a psychiatric condition, and is arguing for his release in many different ways. He does not want to take psychiatric medications. He becomes agitated during the conversation and it was ended early when he walked off. Mental Status Exam MSE Comments: The patient was dressed in hospital scrubs and sloppily groomed. He was quite guarded in his presentation and agitated about being hospitalized against his will. He made poor eye contact. He had psychomotor agitation. Speech was pressured Alert, oriented to person, place, time, and situation Attention and concentration were intact to exam Memory is adequate for the interview Mood is irritable. Affect is irritable and suspicious. Thought process is logical and goal-directed but perseverative. Thought content: From collateral information, it is apparent that the patient has both auditory and visual hallucinations, as well as paranoid delusions of persecution. He denies suicidal ideation and homicidal ideation. Insight and judgment are pared by psychosis. Impulse control is impaired by psychosis as well. Vitals/I&O/Wt Last Vital Signs Temp 98.6 F 06/24/21 14:00 Pulse 101 H 06/24/21 14:00 Resp 18 06/24/21 14:00 BP 126/74 06/24/21 14:00 Pulse Ox 100 06/24/21 14:00 Weight last 48 hrs Weight 79.379 kg Weight 79.379 kg Data NPU : 06/23/21 02:35 06/23/21 02:35 A&P Assessment and plan (1) Acute psychosis: Status: Acute (2) Homicidal ideation: Status: Acute (3) Bereavement: Status: Acute (4) Methamphetamine use: Status: Acute Additional A&P Information This is a 31 year old male who was hospitalized here 4 months ago at the end of January 2021 with complaints of auditory hallucinations. He was admitted to the NPU yesterday after being brought in to the ED by the police because he had paranoid delusions and thoughts as well as plans to kill people he felt were stalking him. He does say he has been using methamphetamines. His psychosis may be due to schizophrenia or may be substance-induced. In either case, in order to recover from the psychosis, he will need to abstain from using intoxicants, and may need antipsychotic medication which she is unwilling to take at this time. His psychosis makes him dangerous to others. RECOMMENDATION AND PLAN: 1. Patient is unwilling to take medication. He disputes the fact that he needs to stay here. 2. Continue every 15 minute checks for safety. 3. Encourage individual, group and milieu therapies. 4. Encourage sober living treatment after discharge at the highest level of care to which he is willing to commit. 5. He is on a 96-hour hold, and we will need to file a petition for a 21-day hold if his psychosis does not resolve by the time the 96-hour hold is up. Involuntary Hold Information 96 Hour Hold: 96 Hour Involuntary Admission: Yes 96 Hour Hold Ending Date: 06/28/21 96 Hour Hold Ending Time: 00:01 Attestations NPU Medical Necessity Statement*: Psychiatric hospitalization is medically necessary to prevent access to lethal means, to reevaluate medication, and to coordinate a safe discharge. Likely length of stay is 5-7 days. Coding Level of Care Code Acute Automatic Spinning Lathe Operator for Silvio Ramirez Diagnoses Acute psychosis F23 Homicidal ideation R45.850 Bereavement Z63.4 Methamphetamine use F15.10
--- NOTE | 2021-06-24 19:33 | NPU.GN ---
[facility] Unit Group Topic:Stress General Mood of Group: Patient was in group on time, dressed appropriately, with good hygiene. The patient participated in group activities. Today the group was able to work on the stress worksheet. Each individually and together. The patient did share information from the worksheet with the group. The patient did ask questions and responded to other patients in the group.
[2021-06-24 20:23] VITALS: BP 103/65; PULSE 89; RESP 14; TEMP 37.1; O2SAT 99
[2021-06-24] MEDS: hyDROXYzine 25 mg Capsule 50 MG PO (20:42)
--- NOTE | 2021-06-24 20:45 | PC.NURSE ---
pt given vistaril 50mg po for c/o increased anxiety.
--- NOTE | 2021-06-24 22:00 | PC.NURSE ---
pt resting quietly at this time with both eyes closed.
--- NOTE | 2021-06-25 01:39 | PC.NURSE ---
Patient up at start of shift. Denied SI/HI or AVH. Continues to appear tense. Does state that he has had some irritation throughout the day with being here but has been able to remain in control and calm self this evening. Did take PRN Vistaril to good effect. In bed with eyes closed at this time. No signs of distress noted.
[2021-06-25 06:00] VITALS: BP 109/69; PULSE 88; RESP 15; TEMP 37.1; O2SAT 99
--- NOTE | 2021-06-25 12:47 | PM.NPN ---
Subjective NPU Subjective: Interval history: I met with the patient in his room. He says he is worried about losing the house that he inherited, but cannot describe why he would lose it. He says he does not know why he is in the hospital and this drives him crazy. I explained again the reason he was admitted and placed on a 96-hour hold, i.e., that he has been feeling he is talked, electrocuted, and attacked by lasers, and that he has felt like killing the people doing this to him. He rejects this explanation and continues to be confused about why he is in the hospital. While talking he also said that he thought that his sister was not his sister, meaning somebody was impersonating her on the phone. He said he probably needed to set up a password to know that it is his actual sister. He called the police and the piling setter appeared on the unit to investigate. I explained to the officer that the patient was on a 96-hour hold and felt he had the right to sign voluntary papers and then discharge himself from the hospital. The officer said he would talk to him to explain that he is not able to leave the hospital while on a 96-hour hold. The patient said he is willing to take antipsychotic medication is not his is not the same medicine he took before, because that medicine dropped his blood pressure. Mental Status Exam MSE Comments: The patient was dressed in hospital scrubs and sloppily groomed. He was quite guarded in his presentation and agitated about being hospitalized against his will. He made poor eye contact. He had psychomotor agitation. Speech was pressured Alert, oriented to person, place, time, and situation Attention and concentration were intact to exam Memory is adequate for the interview Mood is irritable. Affect is irritable and suspicious. Thought process is logical and goal-directed but perseverative. Thought content: From collateral information, it is apparent that the patient has both auditory and visual hallucinations, as well as paranoid delusions of persecution. He denies suicidal ideation and homicidal ideation. Insight and judgment are pared by psychosis. Impulse control is impaired by psychosis as well. Vitals/I&O/Wt Last Vital Signs Temp 97.6 F 06/25/21 14:00 Pulse 109 H 06/25/21 14:00 Resp 18 06/25/21 14:00 BP 116/74 10/26/21 14:00 Pulse Ox 97 06/25/21 14:00 Data NPU : 06/23/21 02:35 06/23/21 02:35 A&P Assessment and plan (1) Methamphetamine use: Status: Acute (2) Acute psychosis: Status: Acute (3) Homicidal ideation: Status: Acute (4) Bereavement: Status: Acute Additional A&P Information This is a 31 year old male who was hospitalized here 4 months ago at the end of January 2021 with complaints of auditory hallucinations. He was admitted to the NPU yesterday after being brought in to the ED by the police because he had paranoid delusions and thoughts as well as plans to kill people he felt were stalking him. He does say he has been using methamphetamines. His psychosis may be due to schizophrenia or may be substance-induced. In either case, in order to recover from the psychosis, he will need to abstain from using intoxicants, and may need antipsychotic medication which she is unwilling to take at this time. His psychosis makes him dangerous to others. RECOMMENDATION AND PLAN: 1. Patient is now willing to take medication. We will start Invega 3 mg daily and monitor his blood pressure daily. 2. Continue every 15 minute checks for safety. 3. Encourage individual, group and milieu therapies. 4. Encourage sober living treatment after discharge at the highest level of care to which he is willing to commit. 5. We filed a petition for a 21-day hold today as his psychosis is continuing and he is only just now agreed to take antipsychotic medication. Involuntary Hold Information 96 Hour Hold: 96 Hour Involuntary Admission: Yes 96 Hour Hold Ending Date: 06/28/21 96 Hour Hold Ending Time: 00:01 Attestations NPU Medical Necessity Statement*: Psychiatric hospitalization is medically necessary to prevent access to lethal means, to reevaluate medication, and to coordinate a safe discharge. Likely length of stay is 5-7 days. Coding Level of Care Code Acute Senior Data Quality Analyst for Silvio Ramirez Diagnoses Methamphetamine use F15.10 Acute psychosis F23 Homicidal ideation R45.850 Bereavement Z63.4
[2021-06-25 14:00] VITALS: BP 116/74; PULSE 109; RESP 18; TEMP 36.4; O2SAT 97
[2021-06-25] MEDS: nicotine 2 mg Gum BUCCAL ×2 (14:14→17:29)
--- NOTE | 2021-06-25 14:16 | PC.NURSE ---
SECURITY APPROACHED THIS PRINT BINDING WORKER REPORTING THE POLICE DEPARTMENT NOTIFIED HIM THAT THIS PATIENT CALLED HIM TO FILE A COMPLAINT. OFFICER ARRIVED TO TALK WITH PATIENT WHOSE COMPLAINT WAS THAT HE WANTED TO LEAVE AND DIDNT UNDERSTAND WHY HE COULDNT. THE OFFICER AND THIS PRINT BINDING WORKER DISCUSSED THE 96 HOUR HOLD WITH THE PATIENT AND THE REASON FOR HIS ADMISSION. PATIENT CALMED, THEN STATES WHAT WAS MY URINE DRUG SCREEN. EXPLAINED TO PATIENT THAT THE ER DIDNT GET ONE AND THAT TIE IN HAND HAS BEEN TRYING TO GET A URINE SAMPLE FROM HIM, AND WE STILL NEEDED ONE. PATIENT COMPLIED AND GAVE A SAMPLE. TAKEN TO THE THE LAB, RESULTS PENDING. PATIENT REPORTS HES DONE METH IN THE PAST AND MAYBE THATS SOME OF THE PROBLEM. WILL CONT TO MONITOR, SUPPORT AND REDIRECT NEEDED.
[2021-06-25 15:07] LABS: Add Urine Microscopic? NO; Charge for UA Resulting for Rev
[2021-06-25 15:26] LABS: Urine Appearance Clear (CLEAR); Urine Color Yellow (Yellow); pH Urine 8 (5-7)
[2021-06-25 15:27] LABS: Bilirubin Urine Neg (Negative); Blood Urine Neg (Negative); Glucose Urine UA Norm (Normal); Ketones Urine Negative (Negative); Leukocyte Esterase Urine Negative (Negative); Nitrate Urine Negative (Negative); Protein Urine Neg (Negative); Sulfosalicylic Acid Urine Negative (Negative); Urobilinogen Urine Norm (Negative)
[2021-06-25 15:41] LABS: Amphetamines Screen Urine Positive (Negative); Barbiturates Screen Urine Negative (Negative); Benzodiazepines Screen Urine Negative (Negative); Cocaine Screen Urine Negative (Negative); Opiate Screen Urine Negative (Negative); PCP Screen Urine Negative (Negative); THC Screen Urine Negative (Negative)
--- NOTE | 2021-06-25 16:25 | NPU.GN ---
[facility] Topic:Jinga (Addiction) General Mood of Group: Patient did come to group and did participate. Patient was on time, dressed appropriately and had good hygiene. The group played addiction Jinga. They read a question off of each jinga block they pulled and shared with the group the answer to their question. Group did make a brief trip outside for some air. They were all in a great mood, they all communicated with each other well.
[2021-06-25] MEDS: hyDROXYzine 25 mg Capsule 50 MG PO (17:29)
--- NOTE | 2021-06-25 17:30 | PC.NURSE ---
PRN VISTARIL 50 MG GIVEN PO PER PT C/O STATED ANXIETY, WILL CONT TO MONITOR FOR DESIRED MED EFFECTIVENESS.
[2021-06-25 20:09] VITALS: RESP 17
--- NOTE | 2021-06-26 02:31 | PC.NURSE ---
Patient in bed resting quietly at start of shift. Cooperative with assessments. Denies SI/HI or AVH. Denied anxiety and depression at start of shift. Has been in bed resting with eyes closed. No complaints voiced. No signs of distress noted.
[2021-06-26 06:00] VITALS: BP 141/64; PULSE 66; RESP 16; TEMP 37; O2SAT 98
[2021-06-26 06:17] VITALS: BP 110/71; BP 112/77; BP 141/64; PULSE 66; PULSE 71; PULSE 94
[2021-06-26] MEDS: nicotine 21 mg Patch 1 PATCH TRANSDERMA (09:05)
[2021-06-26] MEDS: paliperidone ER 3 mg Tablet PO (09:06)
--- NOTE | 2021-06-26 11:52 | NPU.GN ---
[facility] Topic:Stress Map General Mood of Group: Bret did attend group and participated in group activity. Bret left group at the end when others began to share their Stress Maps and did not want to share his. Bret was pleasant during group but quiet.
[2021-06-26 13:43] VITALS: BP 117/74; PULSE 111; RESP 18; TEMP 36.8; O2SAT 95
--- NOTE | 2021-06-26 17:33 | P.PN_ITS ---
Subjective NPU Subjective: Interval history: I spoke with the treatment team about the patient's progress. They say that he attended group this morning, and he participated appropriately. They also say that he has approached many of the staff to say that he wants to check himself out of the hospital. We continue to tell him that we would just have to put him back on a 96-hour hold if he did. Ara caruso was willing to talk with me about the events leading up to his emotional difficulties. He says he has not really been hearing the voices here, and wonders if they just aren't able to get in. He is also afraid he might need to defend himself if the voices break into his home. In addition to the this, he has had some perceptual disturbances. He feels that things are moving around, for instance. He associates these perceptual disturbances with vertigo. He feels that the medication is helpful. Mental Status Exam MSE Comments: The patient was dressed in hospital scrubs and sloppily groomed. He was quite guarded in his presentation and agitated about being hospitalized against his will. He made poor eye contact. He had psychomotor agitation. Speech was pressured Alert, oriented to person, place, time, and situation Attention and concentration were intact to exam Memory is adequate for the interview Mood is irritable. Affect is irritable and suspicious. Thought process is logical and goal-directed but perseverative. Thought content: From collateral information, it is apparent that the patient has both auditory and visual hallucinations, as well as paranoid delusions of persecution. He denies suicidal ideation and homicidal ideation. Insight and judgment are improving. He now see that the medications are helping him think a bit more clearly. Impulse control may be improving as well. Vitals/I&O/Wt Last Vital Signs Temp 98.2 F 06/26/21 13:43 Pulse 78 06/26/21 20:00 Resp 18 06/26/21 13:43 BP 113/67 06/26/21 20:00 Pulse Ox 95 06/26/21 13:43 Data NPU : 06/23/21 02:35 06/23/21 02:35 A&P Assessment and plan (1) Methamphetamine use: Status: Acute (2) Acute psychosis: Status: Acute (3) Homicidal ideation: Status: Acute (4) Bereavement: Status: Acute Additional A&P Information This is a 31 year old male who was hospitalized here 4 months ago at the end of January 2021 with complaints of auditory hallucinations. He was admitted to the NPU yesterday after being brought in to the ED by the police because he had p aranoid delusions and thoughts as well as plans to kill people he felt were stalking him. He does say he has been using methamphetamines. His psychosis may be due to schizophrenia or may be substance-induced. In either case, in order to recover from the psychosis, he will need to abstain from using intoxicants, and may need antipsychotic medication which she is unwilling to take at this time. His psychosis makes him dangerous to others. RECOMMENDATION AND PLAN: 1. Patient is now willing to take medication. We started Invega 3 mg daily and will monitor his blood pressure daily. He feels that the medication is helping him to think more clearly. 2. Continue every 15 minute checks for safety. 3. Encourage individual, group and milieu therapies. 4. Encourage sober living treatment after discharge at the highest level of care to which he is willing to commit. 5. We filed a petition for a 21-day hold today as his psychosis is continuing and he is only just now agreed to take antipsychotic medication. Involuntary Hold Information 2 96 Hour Hold: 96 Hour Involuntary Admission: Yes 96 Hour Hold Ending Date: 06/28/21 96 Hour Hold Ending Time: 00:01 Attestations NPU Medical Necessity Statement*: Psychiatric hospitalization is medically nece ssary to prevent access to lethal means, to reevaluate medication, and to coordinate a safe discharge. Likely length of stay is 5-7 days. Coding Level of Care Code Acute Crm Marketing Specialist for Silvio Ramirez Diagnoses Methamphetamine use F15.10 Acute psychosis F23 Homicidal ideation R45.850 Bereavement Z63.4
[2021-06-26] MEDS: OLANZapine 5 mg ODT PO (17:36)
--- NOTE | 2021-06-26 17:49 | PC.NURSE ---
prn Administered Zyprexa Zydis 5mg for pt c/o anxiety. Will continue to monitor.
[2021-06-26 20:00] VITALS: BP 110/72; BP 113/67; BP 115/71; PULSE 78; PULSE 93; PULSE 94
[2021-06-26 22:00] VITALS: BP 117/74; PULSE 111; RESP 18; TEMP 36.8; O2SAT 95
--- NOTE | 2021-06-27 04:23 | PC.NURSE ---
Patient calm and cooperative in evening. Denies SI/HI or AVH. Denies anxiety and depression. Has been in bed resting with eyes closed throughout most of night. Woken to change rooms during night d/t need of room. Patient was calm and cooperative with this, no complaints voiced. Returned to resting with eyes closed just after arriving to new room. No signs of distress noted.
[2021-06-27 05:58] VITALS: BP 110/70; PULSE 69; RESP 18; TEMP 36.7; O2SAT 97
[2021-06-27 08:00] VITALS: BP 110/72; BP 113/67; BP 115/71; PULSE 78; PULSE 93; PULSE 94
[2021-06-27] MEDS: paliperidone ER 3 mg Tablet PO (09:31)
--- NOTE | 2021-06-27 11:47 | NPU.GN ---
[facility] Topic:My Favorite Things General Mood of Group: Bret did attend group today. Sergey did very well and participated by sharing with the group his favorite things that he likes to do that he find therapeutic to him. Sergey seemed to be in good spirits.
[2021-06-27 14:00] VITALS: BP 110/70; PULSE 69; RESP 18; TEMP 36.7; O2SAT 97
--- NOTE | 2021-06-27 14:32 | P.PN_ITS ---
Subjective NPU Subjective: Interval history: I met with the patient on the bench by the nurses station. He says his mood is good and he slept okay. He was awakened in the night to move him to a new room. When I ask him about the voices, he says, they are not here. They do not have access here because it is too complicated. They are just in certain places. Then he went on to say, I am convinced they are real. He tells me they are voices of actual people he worked with when he was an employee at the [employer] [facility] [employer] [facility] and [place]. Apparently these youth were released and he moved in next door to them in [place] in October, about 8 months ago. He says, I am not going to lopez them down. But he does say that if they entered his house, he would kill them. He tells me these are real people. He says, every time I try to report them, I get locked up in here. He denies any dizziness or other side effects on the Invega. I discussed the way that the court hearing will go this afternoon. He had no questions. Mental Status Exam MSE Comments: The patient was dressed in hospital scrubs and more neatly groomed. He is now more open and cooperative, even though he still does not think he should be in the hospital. He made poor eye contact. He had no psychomotor agitation or retardation. Speech was at a regular rate and rhythm without pressure Alert, oriented to person, place, time, and situation Attention and concentration were intact to exam Memory is adequate for the interview Mood is improving. Affect is calmer. Thought process is logical and goal-directed. Thought content: The patient now admits to auditory hallucinations, but says he is not hearing them in the hospital. He is still convinced of their reality and has paranoid delusions about them. From collateral information, it is apparent that the patient has both auditory and visual hallucinations, as well as paranoid delusions of persecution. He denies suicidal ideation and homicidal ideation. Insight and judgment are improving. He now see that the medications are helping him think a bit more clearly. Saying that he is convinced that the voices are real is also a movement in the direction towards Insight. Impulse control may be improving as well. Vitals/I&O/Wt Last Vital Signs Temp 98.1 F 06/27/21 05:58 Pulse 78 06/27/21 08:00 Resp 18 06/27/21 05:58 BP 113/67 06/27/21 08:00 Pulse Ox 97 06/27/21 05:58 Data NPU : 06/23/21 02:35 06/23/21 02:35 A&P Assessment and plan (1) Methamphetamine use: Status: Acute (2) Acute psychosis: Status: Acute (3) Homicidal ideation: Status: Acute (4) Bereavement: Status: Acute Additional A&P Information This is a 31 year old male who was hospitalized here 4 months ago at the end of January 2021 with complaints of auditory hallucinations. He was admitted to the NPU yesterday after being brought in to the ED by the police because he had paranoid delusions and thoughts as well as plans to kill people he felt were stalking him. He does say he has been using methamphetamines. His psychosis may be due to schizophrenia or may be substance-induced. In either case, in order to recover from the psychosis, he will need to abstain from using intoxicants, and may need antipsychotic medication which she is unwilling to take at this time. His psychosis makes him dangerous to others. RECOMMENDATION AND PLAN: 1. Patient is now willing to take medication. We started Invega 3 mg daily and will monitor his blood pressure daily. He feels that the medication is helping h im to think more clearly. 2. Continue every 15 minute checks for safety. 3. Encourage individual, group and milieu therapies. 4. Encourage sober living treatment after discharge at the highest level of care to which he is willing to commit. 5. He is now on a 21-day hold. Involuntary Hold Information 96 Hour Hold: 96 Hour Involuntary Admission: Yes 96 Hour Hold Ending Date: 06/28/21 96 Hour Hold Ending Time: 00:01 Attestations NPU Medical Necessity Statement*: Psychiatric hospitalization is medically necessary to prevent access to lethal means, to reevaluate medication, and to coordinate a safe discharge. Likely length of stay is 5-7 days. Coding Level of Care Code Acute Machine Feeder Floorperson for Silvio Ramirez Diagnoses Methamphetamine use F15.10 Acute psychosis F23 Homicidal ideation R45.850 Bereavement Z63.4
[2021-06-27 20:00] VITALS: BP 116/74
--- NOTE | 2021-06-27 20:00 | PC.NURSE ---
Upon assessment patient in his room. Patient is alert/oriented x4. he has good eye contact and is pleasant. Pt did request ear plugs due to other patient across the brown snoring. Patient denies any complaints other than anxiety he rates 2. Patient did request sleep medication. Will continue to monitor and follow plan of care. q 15 min safety checks per protocol.
[2021-06-27] MEDS: hyDROXYzine 25 mg Capsule 50 MG PO (20:46)
[2021-06-27 21:29] VITALS: BP 116/74; PULSE 86; RESP 18; TEMP 36.8; O2SAT 98
[2021-06-28 06:00] VITALS: RESP 16
[2021-06-28 08:00] VITALS: BP 117/80; BP 121/75; BP 126/75; PULSE 103; PULSE 91; PULSE 98
[2021-06-28] MEDS: paliperidone ER 3 mg Tablet 6 MG PO (09:37)
--- NOTE | 2021-06-28 12:04 | NPU.GN ---
[facility] Topic:Katie General Mood of Group: Bret was in a good mood today. Bret participated and attended group this morning . He was social with all the other patients and this caption writer conducting group.
[2021-06-28] MEDS: OLANZapine 5 mg ODT PO (12:22)
--- NOTE | 2021-06-28 12:22 | PC.NURSE ---
prn Administered Zyprexa Zydis 5mg for pt c/o anxiety. Will continue to monitor.
[2021-06-28] MEDS: nicotine 2 mg Gum BUCCAL (12:35)
[2021-06-28 13:42] VITALS: BP 124/71; PULSE 80; RESP 17; TEMP 36.7; O2SAT 98
--- NOTE | 2021-06-28 16:08 | P.PN_ITS ---
Subjective NPU Subjective: Interval history: The patient says that his mood is been bored, that he got agitated because things are going to shoot at my house. He says that his ex- is moved and but he does not like what she has been doing. He says he has not talked to his son because it makes him too upset. He does say he feels safe here. He says his daughter is going into rehab. We talked about the blood pressure problems he had after his last admission. He said that maybe it was not the medication after all because he had an abscess at the same time. He reports no dizziness on the Invega, even with the increase to 6 mg. No other medication side effects. Mental Status Exam MSE Comments: The patient was dressed in hospital scrubs and more neatly groomed. He is now more open and cooperative, even though he still does not think he should be in the hospital. He made poor eye contact. He had no psychomotor agitation or retardation. Speech was at a regular rate and rhythm without pressure Alert, oriented to person, place, time, and situation Attention and concentration were intact to exam Memory is adequate for the interview Mood is improving. Affect is calmer. Thought process is logical and goal-directed. Thought content: The patient now admits to auditory hallucinations, but says he is not hearing them in the hospital. He is still convinced of their reality and has paranoid delusions about them. From collateral information, it is apparent that the patient has both auditory and visual hallucinations, as well as paranoid delusions of persecution. He denies suicidal ideation and homicidal ideation. Insight and judgment are improving. He now see that the medications are helping him think a bit more clearly. Saying that he is convinced that the voices are real is also a movement in the direction towards Insight. Impulse control may be improving as well. Vitals/I&O/Wt Last Vital Signs Temp 98.2 F 06/27/21 21:29 Pulse 86 06/27/21 21:29 Resp 16 06/28/21 06:00 BP 116/74 06/27/21 21:29 Pulse Ox 98 06/27/21 21:29 Data NPU : 06/23/21 02:35 06/23/21 02:35 A&P Assessment and plan (1) Methamphetamine use: Status: Acute (2) Acute psychosis: Status: Acute (3) Homicidal ideation: Status: Acute (4) Bereavement: Status: Acute Additional A&P Information This is a 31 year old male who was hospitalized here 4 months ago at the end of January 2021 with complaints of auditory hallucinations. He was admitted to the NPU yesterday after being brought in to the ED by the police because he had paranoid delusions and thoughts as well as plans to kill people he felt were stalking him. He does say he has been using methamphetamines. His psychosis may be due to schizophrenia or may be substance-induced. In either case, in order to recover from the psychosis, he will need to abstain from using intoxicants, and may need antipsychotic medication which she is unwilling to take at this time. His psychosis makes him dangerous to others. RECOMMENDATION AND PLAN: 1. Patient is now willing to take medication. We increased Invega to 6 mg daily and will monitor his blood pressure daily. He feels that the medication is helping him to think more clearly. 2. Continue every 15 minute checks for safety. 3. Encourage individual, group and milieu therapies. 4. Encourage sober living treatment after discharge at the highest level of care to which he is willing to commit. 5. He is now on a 21-day hold. Involuntary Hold Information 96 Hour Hold: 96 Hour Involuntary Admission: Yes 96 Hour Hold Ending Date: 06/28/21 96 Hour Hold Ending Time: 00:01 Attestations NPU Medical Necessity Statement*: Psychiatric hospitalization is medically necessary to prevent access to lethal means, to reevaluate medication, and to coordinate a safe discharge. Likely length of stay is 5-7 days. Coding Level of Care Code Acute Patient Scheduler for Silvio Ramirez Diagnoses Methamphetamine use F15.10 Acute psychosis F23 Homicidal ideation R45.850 Bereavement Z63.4
[2021-06-28 20:17] VITALS: RESP 16
[2021-06-29 06:00] VITALS: BP 128/70; PULSE 75; RESP 17; TEMP 36.5; O2SAT 98
[2021-06-29] MEDS: paliperidone ER 3 mg Tablet 6 MG PO (08:23)
--- NOTE | 2021-06-29 11:46 | P.NPUPN_ITS ---
Subjective NPU Subjective: Interval history: The patient says his mood is normal, bored. He says things are pretty good at home. He does not think that people are going to bother him here. In fact, he says he does not think that the people whose voices he was hearing will bother him anymore. He says the voices corresponded to when I stopped taking my meds. I am eager to find out if there hallucinations. They more narrate. They are more annoying than anything. This is more insight than he has had up to this point. The patient has not been hearing the voices here at the hospital. He has had some visual illusions which he calls vertigo, in which the background behind in object will move in ways that make him feel like he is spinning. He says his blood pressures been doing well and he has had no dizziness on the Invega. He denies suicidal and homicidal ideation. He has had no side effects of the medication. Mental Status Exam MSE Comments: The patient was dressed in hospital scrubs and fairly neatly groomed. He is now more open and cooperative. He made fairly good eye contact. He had no psychomotor agitation or retardation. Speech was at a regular rate and rhythm without pressure Alert, oriented to person, place, time, and situation Attention and concentration were intact to exam Memory is adequate for the interview Mood is improving. Affect is calmer. Thought process is logical and goal-directed. Thought content: The patient now thinks of the voices he was hearing as possibly hallucinations. He has not had them since admission. He has visual illusions but no hallucinations. No delusions are noted today. He denies suicidal ideation and homicidal ideation. Insight and judgment are improving. He now wonders if the voices he was hearing were hallucinations.. Impulse control may be improving as well. Vitals/I&O/Wt Last Vital Signs Temp 97.7 F 06/29/21 06:00 Pulse 75 06/29/21 06:00 Resp 17 06/29/21 06:00 BP 128/70 06/29/21 06:00 Pulse Ox 98 06/29/21 06:00 Data NPU : 06/23/21 02:35 06/23/21 02:35 A&P Assessment and plan (1) Methamphetamine use: Status: Acute (2) Acute psychosis: Status: Acute (3) Homicidal ideation: Status: Acute (4) Bereavement: Status: Acute Additional A&P Information This is a 31 year old male who was hospitalized here 4 months ago at the end of January 2021 with complaints of auditory hallucinations. He was admitted to the NPU yesterday after being brought in to the ED by the police because he had paranoid delusions and thoughts as well as plans to kill people he felt were stalking him. He does say he has been using methamphetamines. His psychosis may be due to schizophrenia or may be substance-induced. In either case, in order to recover from the psychosis, he will need to abstain from using intoxicants, and may need antipsychotic medication which she is unwilling to take at this time. His psychosis makes him dangerous to others. RECOMMENDATION AND PLAN: 1. On Invega to 6 mg daily. We will change his blood pressure monitoring to once daily. We have discussed a switch to Invega Sustenna, but he is afraid of shots. He is starting to see the need for medication. He feels that the medication is helping him to think more clearly. 2. Continue every 15 minute checks for safety. 3. Encourage individual, group and milieu therapies. 4. Encourage sober living treatment after discharge at the highest level of care to which he is willing to commit. 5. He is now on a 21-day hold. Involuntary Hold Information 96 Hour Hold: 96 Hour Involuntary Admission: Yes 96 Hour Hold Ending Date: 06/28/21 96 Hour Hold Ending Time: 00:01 Attestations NPU Medical Necessity Statement*: Psychiatric hospitalization is medically necessary to prevent access to lethal means, to reevaluate medication, and to coordinate a safe discharge. Likely length of stay is 4-6 days. Coding Level of Care Code Acute Clinical Administrator for Silvio Ramirez Diagnoses Methamphetamine use F15.10 Acute psychosis F23 Homicidal ideation R45.850 Bereavement Z63.4
[2021-06-29 14:00] VITALS: BP 121/79; PULSE 66; RESP 17; TEMP 36.9; O2SAT 97
[2021-06-29] MEDS: OLANZapine 5 mg ODT PO (16:12)
[2021-06-29 21:10] VITALS: BP 124/77; PULSE 110; RESP 18; TEMP 36.6; O2SAT 99
[2021-06-30 06:00] VITALS: RESP 18; BMI 24.4
[2021-06-30] MEDS: paliperidone ER 3 mg Tablet 6 MG PO (09:45)
--- NOTE | 2021-06-30 12:58 | P.NPUPN_ITS ---
Subjective NPU Subjective: Interval history: Patient presents today reporting that he is calling this entry writer from previous visit. He reports that he was brought in by chief of police and that he must of been acting strangely. He acknowledges that he had stopped his medications. And that he and Dr. Arizmendi restarted them. He reports that he was having a resurgence of his symptoms in the immediate. Prior to being picked up secondary to the discontinuation of his medication. We discussed the fact that we may consider a long-acting injectable which he reported he might think about. Mental Status Exam MSE Comments: This is a well-nourished, well-developed white male in hospital scrubs with adequate grooming and eye contact. No abnormal movements except for mild psychomotor retardation. Cooperative with exam in mild distress. Speech was decreased rate and volume. Mood described as a little better than when he got here, affect odd. Thought process organized, thought: Patient denied c urrent suicidal or homicidal ideation, there were no delusions reported but some guardedness and paranoia seem present, he endorsed auditory hallucinations. Attention and concentration appeared intact and memory appeared reliable but none were formally tested. He is alert and oriented x3. Insight and judgment are limited, impulse control is limited. Vitals/I&O/Wt Last Vital Signs Temp 97.9 F 06/29/21 21:10 Pulse 110 H 06/29/21 21:10 Resp 18 06/30/21 06:00 BP 124/77 06/29/21 21:10 Pulse Ox 99 06/29/21 21:10 Weight last 48 hrs Weight 79.379 kg Data NPU : 06/23/21 02:35 06/23/21 02:35 A&P Additional A&P Information (1) Methamphetamine use: (2) Acute psychosis: (3) Homicidal ideation: (4) Bereavement: Additional A&P Information This is a 31 year old male who was hospitalized here 4 months ago at the end of January 2021 with complaints of auditory hallucinations. He was admitted to the NPU after being brought in to the ED by the police because he had paranoid delusions and thoughts as well as plans to kill people he felt were stalking hi m. He does say he has been using methamphetamines. His psychosis may be due to schizophrenia or may be substance-induced. In either case, in order to recover from the psychosis, he will need to abstain from using intoxicants, and may need antipsychotic medication which he is unwilling to take at this time. His psychosis makes him dangerous to others. RECOMMENDATION AND PLAN: 1. On Invega to 6 mg daily. We will change his blood pressure monitoring to once daily. We have discussed a switch to Invega Sustenna, but he is afraid of shots. 2. Continue every 15 minute checks for safety. 3. Encourage individual, group and milieu therapies. 4. Encourage sober living treatment after discharge at the highest level of care to which he is willing to commit. 5. He is now on a 21-day hold. Involuntary Hold Information 96 Hour Hold: 96 Hour Involuntary Admission: Yes 96 Hour Hold Ending Date: 06/28/21 96 Hour Hold Ending Time: 00:01 Attestations NPU Medical Necessity Statement*: Psychiatric hospitalization is medically necessary to prevent access to lethal means, to reevaluate medication, and to coordinate a safe discharge. Likely length of stay is 4-6 days. Coding Level of Care Code Acute Information Clerk Cashier for Silvio Ramirez
[2021-06-30 14:00] VITALS: BP 122/80; PULSE 102; RESP 17; TEMP 36.9; O2SAT 98
[2021-06-30] MEDS: hyDROXYzine 25 mg Capsule 50 MG PO (16:04)
[2021-06-30] MEDS: nicotine 2 mg Gum BUCCAL (18:38)
[2021-06-30 19:52] VITALS: BP 131/87; PULSE 110; RESP 20; TEMP 36.8; O2SAT 96
[2021-07-01 06:00] VITALS: BP 114/75; PULSE 97; RESP 18; TEMP 36.6; O2SAT 99
[2021-07-01] MEDS: hyDROXYzine 25 mg Capsule 50 MG PO ×2 (09:10→15:55)
[2021-07-01] MEDS: paliperidone ER 3 mg Tablet 6 MG PO (09:10)
[2021-07-01] MEDS: nicotine 21 mg Patch 1 PATCH TRANSDERMA (09:10)
--- NOTE | 2021-07-01 09:10 | PC.NURSE ---
prn Vistaril 50 mg given po per pt c/o stated anxiety
--- NOTE | 2021-07-01 10:48 | NPU.GN ---
[facility] Topic:Triggers and Coping Skills General Mood of Group: Bret did attend and participate in group activity today. Brte shared some of his triggers and coping mechanisms with the group and this senior mortgage underwriter. Bret seems to have a good mindset and was able to stay focused and on task. Bret seems mentally and emotionally stable at this time and was in a good mood.
[2021-07-01 14:00] VITALS: BP 135/81; PULSE 79; RESP 17; TEMP 36.2; O2SAT 96
--- NOTE | 2021-07-01 15:56 | PC.NURSE ---
PRN VISTARIL 50 MG GIVEN PO PER PT REQUEST & C/O STATED ANXIETY
--- NOTE | 2021-07-01 16:54 | P.NPUPN_ITS ---
Subjective NPU Subjective: Interval history: Patient presents today reporting that he is doing better and identifying that him being off of his medication was the cause of the setback. He is very focused on getting out because he reports that he has a home that he is purchasing in town. He is upset at the idea of returning to the injection. We discussed that given his propensity for discontinuing his medication and the significance of the outcome a long-acting injectable seeming a very reasonable approach. Mental Status Exam MSE Comments: This is a well-nourished, well-developed white male in hospital scrubs with adequate grooming and eye contact. No abnormal movements except for mild psychomotor retardation. Cooperative with exam in no acute distress. Speech was slightly decreased rate and volume. Mood described as a little better , affect less odd. Thought process organized, thought: Patient denied current suicidal or homicidal ideation, there were no delusions reported but shahid e guardedness and paranoia seem present, but resolving, he endorsed auditory hallucinations that are reducing. Attention and concentration appeared intact and memory appeared reliable but none were formally tested. He is alert and oriented x3. Insight and judgment are limited, but improving, impulse control is limited, but improving. Vitals/I&O/Wt Last Vital Signs Temp 97.1 F L 07/01/21 14:00 Pulse 79 07/01/21 14:00 Resp 17 07/01/21 14:00 BP 135/81 07/01/21 14:00 Pulse Ox 96 07/01/21 14:00 Weight last 48 hrs Weight 79.379 kg Data NPU : 06/23/21 02:35 06/23/21 02:35 A&P Additional A&P Information (1) Methamphetamine use: (2) Acute psychosis: (3) Homicidal ideation: (4) Bereavement: Additional A&P Information This is a 31 year old male who was hospitalized here 4 months ago at the end of January 2021 with complaints of auditory hallucinations. He was admitted to the NPU after being brought in to the ED by the police because he had paranoid delusions and thoughts as well as plans to kill people he felt were stalking him. He does say he has been using methamphetamines. His psychosis may be due to schizophrenia or may be substance-induced. In either case, in order to recover from the psychosis, he will need to abstain from using intoxicants, and may need antipsychotic medication which he is unwilling to take at this time. His psychosis makes him dangerous to others. RECOMMENDATION AND PLAN: 1. On Invega to 6 mg daily. We will change his blood pressure monitoring to once daily. We have discussed a switch to Invega Sustenna, but he is afraid of shots. 2. Continue every 15 minute checks for safety. 3. Encourage individual, group and milieu therapies. 4. Encourage sober living treatment after discharge at the highest level of care to which he is willing to commit. 5. He is now on a 21-day hold. Involuntary Hold Information 96 Hour Hold: 96 Hour Involuntary Admission: Yes 96 Hour Hold Ending Date: 06/28/21 96 Hour Hold Ending Time: 00:01 Attestations NPU Medical Necessity Statement*: Psychiatric hospitalization is medically necessary to prevent access to lethal means, to reevaluate medication, and to coordinate a safe discharge. Likely length of stay is 3-5 days. Coding Level of Care Code Acute Pipe Installer for Silvio Ramirez
[2021-07-01 21:12] VITALS: BP 131/76; PULSE 98; RESP 18; TEMP 36.4; O2SAT 97
--- NOTE | 2021-07-02 04:55 | PC.NURSE ---
Patient has no complaints voiced this shift. Has been in bed resting with eyes closed throughout night. No complaints, no distress noted. No PRN medications requested.
[2021-07-02 05:47] VITALS: BP 119/73; PULSE 84; RESP 18; TEMP 36.7; O2SAT 97
[2021-07-02] MEDS: paliperidone ER 3 mg Tablet 6 MG PO (08:43)
--- NOTE | 2021-07-02 11:32 | NPU.GN ---
[facility] Topic:Mental Health Crossword Puzzle/ Psych Education General Mood of Group: Bret did attend group and participated with others in group. Bret was in a good mood and seemed mentally and emotionally stable.
[2021-07-02 14:00] VITALS: BP 116/64; PULSE 93; RESP 16; TEMP 36.8; O2SAT 98
[2021-07-02] MEDS: OLANZapine 5 mg ODT PO (16:12)
[2021-07-02] MEDS: hyDROXYzine 25 mg Capsule 50 MG PO (16:12)
[2021-07-02 20:11] VITALS: RESP 17
--- NOTE | 2021-07-02 21:13 | W.PM.NPUPNS ---
Subjective NPU Subjective: Interval history: Bret presents today continuing to show increased level stability and more clarity of thought the longer he is on his medication. He is demonstrating some possible openness to considering the injection though continues to have resistance to the shot we are discussing it as a means by which she can get out sooner as we would have clarity that he is taking his medication. He wanted some assurance however that he would get stuck with a significant bill from the cost of the medication. Mental Status Exam MSE Comments: This is a well-nourished, well-developed white male in hospital scrubs with adequate grooming and eye contact. No abnormal movements except for mild psychomotor retardation. Cooperative with exam in no acute distress. Speech was slightly decreased rate and volume. Mood described as better , affect less odd. Thought process organized, thought: Patient denied current suicidal or homicidal ideation, there were no delusions reported but some guardedness and paranoia seem present, but resolving, he endorsed auditory hallucinations that are reducing. Attention and concentration appeared intact and memory appeared reliable but none were formally tested. He is alert and oriented x3. Insight and judgment are limited, but improving, impulse control is limited, but improving. Vitals/I&O/Wt Last Vital Signs Temp 98.2 F 07/02/21 14:00 Pulse 93 07/02/21 14:00 Resp 17 07/02/21 20:11 BP 116/64 07/02/21 14:00 Pulse Ox 98 07/02/21 14:00 Data NPU : 06/23/21 02:35 06/23/21 02:35 A&P Additional A&P Information (1) Methamphetamine use: (2) Acute psychosis: (3) Homicidal ideation: (4) Bereavement: Additional A&P Information This is a 31 year old male who was hospitalized here 4 months ago at the end of January 2021 with complaints of auditory hallucinations. He was admitted to the NPU after being brought in to the ED by the police because he had paranoid delusions and thoughts as well as plans to kill people he felt were stalking him. He does say he has been using methamphetamines. His psychosis may be due to schizophrenia or may be substance-induced. In either case, in order to recover from the psychosis, he will need to abstain from using intoxicants, and may need antipsychotic medication which he is unwilling to take at this time. His psychosis makes him dangerous to others. RECOMMENDATION AND PLAN: 1. On Invega to 6 mg daily. We will change his blood pressure monitoring to once daily. We have discussed a switch to Invega Sustenna, but he is afraid of shots. 2. Continue every 15 minute checks for safety. 3. Encourage individual, group and milieu therapies. 4. Encourage sober living treatment after discharge at the highest level of care to which he is willing to commit. 5. He is now on a 21-day hold. Involuntary Hold Information 96 Hour Hold: 96 Hour Involuntary Admission: Yes 96 Hour Hold Ending Date: 06/28/21 96 Hour Hold Ending Time: 00:01 Attestations NPU Medical Necessity Statement*: Psychiatric hospitalization is medically necessary to prevent access to lethal means, to reevaluate medication, and to coordinate a safe discharge. Likely length of stay is 3-5 days. Coding Level of Care Code Acute Admiralty Lawyer for Silvio Ramirez
[2021-07-03 06:00] VITALS: BP 104/65; PULSE 86; RESP 16; O2SAT 96
[2021-07-03] MEDS: nicotine 21 mg Patch 1 PATCH TRANSDERMA (08:09)
[2021-07-03] MEDS: paliperidone ER 3 mg Tablet 6 MG PO (08:09)
--- NOTE | 2021-07-03 11:02 | NPU.GN ---
[facility] Topic: Meditation Psych Education General Mood of Group: Bret did attend and participated in group today. Bret really enjoyed the meditation group this technical proposal writer had as psych education today. After group Bret filling out the intake paper work for [facility] services with the assistance of this technical proposal writer. [facility] Intake paperwork is completed for this patient.
[2021-07-03] MEDS: hyDROXYzine 25 mg Capsule 50 MG PO ×3 (12:56→21:04)
[2021-07-03 14:00] VITALS: BP 118/75; PULSE 106; RESP 18; TEMP 36.5; O2SAT 97
--- NOTE | 2021-07-03 16:31 | W.PM.NPUPNS ---
Subjective NPU Subjective: Interval history: Patient presents today for stating that taking the long-acting injectable will treat stability and allow his treatment team to have comfort in the fact that he is on his medication. We discussed the risk of and alternatives of initiating the first Invega Sustenna injection and then making arrangements for him to get the other injection likely outside the hospital. He understood agreed proceed as documented in his note. Mental Status Exam MSE Comments: This is a well-nourished, well-developed white male in hospital scrubs with adequate grooming and eye contact. No abnormal movements except for mild psychomotor retardation. Cooperative with exam in no acute distress. Speech was slightly decreased rate and volume. Mood described as better , affect less odd. Thought process organized, thought: Patient denied current suicidal or homicidal ideation, there were no delusions reported but some guardedness and paranoia seem present, but resolving, he endorsed auditory hallucinations that are reducing. Attention and concentration appeared intact and memory appeared reliable but none were formally tested. He is alert and oriented x3. Insight and judgment are limited, but improving, impulse control is limited, but improving. Vitals/I&O/Wt Last Vital Signs Temp 98.3 F 07/03/21 20:30 Pulse 105 H 07/03/21 20:30 Resp 18 07/03/21 20:30 BP 129/85 07/03/21 20:30 Pulse Ox 95 07/03/21 20:30 Data NPU : 06/23/21 02:35 06/23/21 02:35 A&P Additional A&P Information (1) Methamphetamine use: (2) Acute psychosis: (3) Homicidal ideation: (4) Bereavement: Additional A&P Information This is a 31 year old male who was hospitalized here 4 months ago at the end of January 2021 with complaints of auditory hallucinations. He was admitted to the NPU after being brought in to the ED by the police because he had paranoid delusions and thoughts as well as plans to kill people he felt were stalking him. He does say he has been using methamphetamines. His psychosis may be due to schizophrenia or may be substance-induced. In either case, in order to recover from the psychosis, he will need to abstain from using intoxicants, and may need antipsychotic medication which he is unwilling to take at this time. His psychosis makes him dangerous to others. RECOMMENDATION AND PLAN: 1. On Invega to 6 mg daily. We will change his blood pressure monitoring to once daily. Start Invega Sustenna 234 mg IM to the deltoid. We will make arrangements for the second injection and discontinue Invega oral at discharge. 2. Continue every 15 minute checks for safety. 3. Encourage individual, group and milieu therapies. 4. Encourage sober living treatment after discharge at the highest level of care to which he is willing to commit. 5. He is now on a 21-day hold. Involuntary Hold Information 96 Hour Hold: 96 Hour Involuntary Admission: Yes 96 Hour Hold Ending Date: 06/28/21 96 Hour Hold Ending Time: 00:01 Attestations NPU Medical Necessity Statement*: Psychiatric hospitalization is medically necessary to prevent access to lethal means, to reevaluate medication, and to coordinate a safe discharge. Likely length of stay is 2-4 days. Coding Level of Care Code Acute Steam Heating Installer for Silvio Ramirez
--- NOTE | 2021-07-03 17:22 | PC.NURSE ---
PRN VISTARIL 50 MG GIVEN PO PER PT C/O STATED ANXIETY
[2021-07-03 20:30] VITALS: BP 129/85; PULSE 105; RESP 18; TEMP 36.8; O2SAT 95
[2021-07-03] MEDS: OLANZapine 5 mg ODT PO (21:04)
[2021-07-03] MEDS: paliperidone palmitate 234 mg Syringe IM (22:40)
--- NOTE | 2021-07-03 23:33 | PC.NURSE ---
Administered hydroxyzine 50mg PO for anxiety and zyprexa 5mg PO for agitation per patient request. Medication effective, patient resting with eyes closed with equal, nonlabored respirations
--- NOTE | 2021-07-04 03:52 | PC.NURSE ---
Patient is up, calm, cooperative, and compliant with all care. Denies SI/HI, AVH, or anxiety and depression. Received Invega inj this evening. Has remained in bed resting with eyes closed most of evening. No complaints during night. No signs of distress noted.
[2021-07-04 06:00] VITALS: BP 127/77; PULSE 96; RESP 18; TEMP 36.6; O2SAT 97
[2021-07-04] MEDS: nicotine 21 mg Patch 1 PATCH TRANSDERMA (07:09)
[2021-07-04] MEDS: OLANZapine 5 mg ODT PO ×2 (10:51→17:13)
[2021-07-04] MEDS: paliperidone ER 3 mg Tablet PO (11:00)
--- NOTE | 2021-07-04 11:51 | NPU.GN ---
[facility] Topic:Meditation/ Depression Rose General Mood of Group: Bret did attend group today. He participated and did very well in group. Bret was in a great mind set and mood.
[2021-07-04 14:00] VITALS: BP 121/76; PULSE 103; RESP 18; TEMP 36.2; O2SAT 99
--- NOTE | 2021-07-04 17:15 | PC.NURSE ---
prn Administered Zyprexa Zydis 5mg for pt c/o anxiety. Will continue to monitor pt.
--- NOTE | 2021-07-04 17:57 | P.NPUPN_ITS ---
Subjective NPU Subjective: Interval history: Patient presents today having had his injection yesterday. We are working to get his coverage for the injection after discharge. We discussed determining if we can make sure he gets the injection and possibly get him out of here a little earlier if he continues to maintain his improvement and if we have a safe plan for follow-up. Mental Status Exam MSE Comments: This is a well-nourished, well-developed white male in hospital scrubs with adequate grooming and eye contact. No abnormal movements except for mild psychomotor retardation. Cooperative with exam in no acute distress. Speech was slightly decreased rate and volume. Mood described as better , affect less odd. Thought process organized, thought: Patient denied current suicidal or homicidal ideation, there were no delusions reported but some guardedness and paranoia seem present, but resolving, he endorsed auditory hallucinations that are reducing. Attention and concentration appeared intact and memory appeared reliable but none were formally tested. He is alert and oriented x3. Insight and judgment are limited, but improving, impulse control is limited, but improving. Vitals/I&O/Wt Last Vital Signs Temp 98.4 F 07/04/21 21:06 Pulse 104 H 07/04/21 21:06 Resp 18 07/04/21 21:06 BP 126/76 07/04/21 21:06 Pulse Ox 99 07/04/21 21:06 Data NPU : 06/23/21 02:35 06/23/21 02:35 A&P Additional A&P Information (1) Methamphetamine use: (2) Acute psychosis: (3) Homicidal ideation: (4) Bereavement: Additional A&P Information This is a 31 year old male who was hospitalized here 4 months ago at the end of January 2021 with complaints of auditory hallucinations. He was admitted to the NPU after being brought in to the ED by the police because he had paranoid delusions and thoughts as well as plans to kill people he felt were stalking him. He does say he has been using methamphetamines. His psychosis may be due to schizophrenia or may be substance-induced. In either case, in order to recover from the psychosis, he will need to abstain from using intoxicants, and may need antipsychotic medication which he is unwilling to take at this time. His psychosis makes him dangerous to others. RECOMMENDATION AND PLAN: 1. Continue current medications. We will make arrangements for the second injection and discontinue Invega oral at discharge. 2. Continue every 15 minute checks for safety. 3. Encourage individual, group and milieu therapies. 4. Encourage sober living treatment after discharge at the highest level of care to which he is willing to commit. 5. He is now on a 21-day hold. Involuntary Hold Information 96 Hour Hold: 96 Hour Involuntary Admission: Yes 96 Hour Hold Ending Date: 06/28/21 96 Hour Hold Ending Time: 00:01 Attestations NPU Medical Necessity Statement*: Psychiatric hospitalization is medically necessary to prevent access to lethal means, to reevaluate medication, and to coordinate a safe discharge. Likely length of stay is 2-6 days. Coding Level of Care Code Acute Elementary Special Education Teacher for Silvio Ramirez
[2021-07-04 21:06] VITALS: BP 126/76; PULSE 104; RESP 18; TEMP 36.9; O2SAT 99
[2021-07-05 06:00] VITALS: BP 109/66; PULSE 93; RESP 17; TEMP 36.8; O2SAT 97
[2021-07-05] MEDS: OLANZapine 5 mg ODT PO (10:05)
[2021-07-05] MEDS: paliperidone ER 3 mg Tablet PO (10:06)
[2021-07-05] MEDS: nicotine 21 mg Patch 1 PATCH TRANSDERMA (13:23)
--- NOTE | 2021-07-05 13:30 | NPU.GN ---
[facility] Topic:Jhoan Breaker Psych Education General Mood of Group: Bret did attend group this morning and participated in group. Bret was in a good mood and socialized well with others. Bret was in a great mindset and was positive today.
[2021-07-05 14:00] VITALS: BP 122/73; PULSE 109; RESP 17; TEMP 37.1; O2SAT 94
--- NOTE | 2021-07-05 15:18 | W.PM.NPUPNS ---
Subjective NPU Subjective: Interval history: Patient presents today reporting that he is feeling hopeful that we can get his second injection managed by someone and avoid him having to stay here till next Thursday but he wants to do his best and have his be the end of his hospitalizations. He reports that he has no intention of stopping his medication again in the past however we discussed the fact that he has had the attitude of adherence in the past as well and we still ended up here with him off his medication and psychotic. He is considering getting a Covid vaccine however he has no concerns about something on the paperwork that seems to establish federal involvement. Mental Status Exam MSE Comments: This is a well-nourished, well-developed white male in hospital scrubs with adequate grooming and eye contact. No abnormal movements except for mild psychomotor retardation. Cooperative with exam in no acute distress. Speech was slightly decreased rate and volume. Mood described as better , affect less odd. Thought process organized, thought: Patient denied current suicidal or homicidal ideation, there were no delusions reported but some guardedness and paranoia seem present, but resolving, he endorsed auditory hallucinations that are reducing. Attention and concentration appeared intact and memory appeared reliable but none were formally tested. He is alert and oriented x3. Insight and judgment are limited, but improving, impulse control is limited, but improving. Vitals/I&O/Wt Last Vital Signs Temp 98.7 F 07/05/21 14:00 Pulse 109 H 07/05/21 14:00 Resp 17 07/05/21 14:00 BP 122/73 07/05/21 14:00 Pulse Ox 94 07/05/21 14:00 Data NPU : 06/23/21 02:35 06/23/21 02:35 A&P Additional A&P Information (1) Methamphetamine use: (2) Acute psychosis: (3) Homicidal ideation: (4) Bereavement: Additional A&P Information This is a 31 year old male who was hospitalized here 4 months ago at the end of January 2021 with complaints of auditory hallucinations. He was admitted to the NPU after being brought in to the ED by the police because he had paranoid delusions and thoughts as well as plans to kill people he felt were stalking him. He does say he has been using methamphetamines. His psychosis may be due to schizophrenia or may be substance-induced. In either case, in order to recover from the psychosis, he will need to abstain from using intoxicants, and may need antipsychotic medication which he is unwilling to take at this time. His psychosis makes him dangerous to others. RECOMMENDATION AND PLAN: 1. Continue current medications. We will make arrangements for the second injection and discontinue Invega oral at discharge. 2. Continue every 15 minute checks for safety. 3. Encourage individual, group and milieu therapies. 4. Encourage sober living treatment after discharge at the highest level of care to which he is willing to commit. 5. He is now on a 21-day hold. We will shoot for Thursday discharge if he can get verification he will be to get his next injection. If not we will discharge Thursday. Involuntary Hold Information 96 Hour Hold: 96 Hour Involuntary Admission: Yes 96 Hour Hold Ending Date: 06/28/21 96 Hour Hold Ending Time: 00:01 Attestations NPU Medical Necessity Statement*: Psychiatric hospitalization is medically necessary to prevent access to lethal means, to reevaluate medication, and to coordinate a safe discharge. Likely length of stay is 2-5 days. Coding Level of Care Code Acute Model Maker Scale for Silvio Ramirez
[2021-07-05] MEDS: hyDROXYzine 25 mg Capsule 50 MG PO (16:04)
[2021-07-05 21:41] VITALS: RESP 17
[2021-07-06 06:00] VITALS: RESP 17
[2021-07-06] MEDS: paliperidone ER 3 mg Tablet PO (09:47)
[2021-07-06] MEDS: OLANZapine 5 mg ODT PO ×2 (09:49→14:34)
[2021-07-06 14:00] VITALS: BP 131/71; PULSE 77; RESP 17; TEMP 36.3; O2SAT 96
--- NOTE | 2021-07-06 16:46 | P.NPUPN_ITS ---
Subjective NPU Subjective: Interval history: Patient is frustrated with having to stay in the hospital and feels like he is certain he would do with right and take his medication every day. We agreed however that when he misses that jeff the fall is fairly significant and so this decision is the safest and most responsible thing for us to do. He denies any changes. Mental Status Exam MSE Comments: This is a well-nourished, well-developed white male in hospital scrubs with adequate grooming and eye contact. No abnormal movements except for mild psychomotor retardation. Cooperative with exam in no acute distress. Speech was slightly decreased rate and volume. Mood described as okay, affect less odd. Thought process organized, thought: Patient denied current suicidal or homicidal ideation, there were no delusions reported but some guardedness and paranoia seem present, but resolving, he endorsed auditory hallucinations that are reducing. Attention and concentration appeared intact and memory appeared reliable but none were formally tested. He is alert and oriented x3. Insight and judgment are limited, but improving, impulse control is limited, but improving. Vitals/I&O/Wt Last Vital Signs Temp 97.3 F L 07/06/21 14:00 Pulse 77 07/06/21 14:00 Resp 17 07/06/21 14:00 BP 131/71 07/06/21 14:00 Pulse Ox 96 07/06/21 14:00 Data NPU : 06/23/21 02:35 06/23/21 02:35 A&P Additional A&P Information (1) Methamphetamine use: (2) Acute psychosis: (3) Homicidal ideation: (4) Bereavement: Additional A&P Information This is a 31 year old male who was hospitalized here 4 months ago at the end of January 2021 with complaints of auditory hallucinations. He was admitted to the NPU after being brought in to the ED by the police because he had paranoid delusions and thoughts as well as plans to kill people he felt were stalking him. He does say he has been using methamphetamines. His psychosis may be due to schizophrenia or may be substance-induced. In either case, in order to recover from the psychosis, he will need to abstain from using intoxicants, and may need antipsychotic medication which he is unwilling to take at this time. His psychosis makes him dangerous to others. RECOMMENDATION AND PLAN: 1. Continue current medications. We will make arrangements for the second injection and discontinue Invega oral at discharge. 2. Continue every 15 minute checks for safety. 3. Encourage individual, group and milieu therapies. 4. Encourage sober living treatment after discharge at the highest level of care to which he is willing to commit. 5. He is now on a 21-day hold. We will shoot for Thursday discharge if he can get verification he will be to get his next injection. If not we will discharge Thursday. Involuntary Hold Information 96 Hour Hold: 96 Hour Involuntary Admission: Yes 96 Hour Hold Ending Date: 06/28/21 96 Hour Hold Ending Time: 00:01 Attestations NPU Medical Necessity Statement*: Psychiatric hospitalization is medically necess bre to prevent access to lethal means, to reevaluate medication, and to coordinate a safe discharge. Likely length of stay is 2-5 days. Coding Level of Care Code Acute Concrete Mixing Truck Driver for Silvio Ramirez
[2021-07-06] MEDS: OLANZapine 10 mg TABLET PO (18:40)
[2021-07-06 21:59] VITALS: BP 136/74; PULSE 84; RESP 18; TEMP 36.6; O2SAT 97
[2021-07-07 06:00] VITALS: BP 99/55; PULSE 142; RESP 17; TEMP 36.7; O2SAT 96; BMI 24.4
[2021-07-07] MEDS: paliperidone ER 3 mg Tablet PO (08:24)
[2021-07-07] MEDS: OLANZapine 5 mg ODT PO ×2 (08:24→15:18)
[2021-07-07] MEDS: hyDROXYzine 25 mg Capsule 50 MG PO (11:48)
--- NOTE | 2021-07-07 11:58 | W.PM.NPUPNS ---
Subjective NPU Subjective: Interval history: Patient presents today reporting that he is bored here in the hospital. We discussed a plan to see if we can get some agreement to ensure he can to decide on Thursday and possibly discharge in the morning. Reports he is feeling optimistic that with the medication on board he will be able to meet the challenges of his life. Mental Status Exam MSE Comments: This is a well-nourished, well-developed white male in hospital scrubs with adequate grooming and eye contact. No abnormal movements except for mild psychomotor retardation. Cooperative with exam in no acute distress. Speech was slightly decreased rate and volume. Mood described as better , affect less odd. Thought process organized, thought: Patient denied current suicidal or homicidal ideation, there were no delusions reported but some guardedness and paranoia seem present, but resolving, he endorsed auditory hallucinations that are reducing. Attention and concentration appeared intact and memory appeared reliable but none were formally tested. He is alert and oriented x3. Insight and judgment are limited, but improving, impulse control is limited, but improving. Vitals/I&O/Wt Last Vital Signs Temp 98.1 F 07/07/21 06:00 Pulse 142 H 07/07/21 06:00 Resp 17 07/07/21 06:00 BP 99/55 07/07/21 06:00 Pulse Ox 96 07/07/21 06:00 Weight last 48 hrs Weight 79.379 kg Data NPU : 06/23/21 02:35 06/23/21 02:35 A&P Additional A&P Information (1) Methamphetamine use: (2) Acute psychosis: (3) Homicidal ideation: (4) Bereavement: Additional A&P Information This is a 31 year old male who was hospitalized here 4 months ago at the end of January 2021 with complaints of auditory hallucinations. He was admitted to the NPU after being brought in to the ED by the police because he had paranoid delusions and thoughts as well as plans to kill people he felt were stalking him. He does say he has been using methamphetamines. His psychosis may be due to schizophrenia or may be substance-induced. In either case, in order to recover from the psychosis, he will need to abstain from using intoxicants, and may need antipsychotic medication which he is unwilling to take at this time. His psychosis makes him dangerous to others. RECOMMENDATION AND PLAN: 1. Continue current medications. We will make arrangements for the second injection and discontinue Invega oral at discharge. 2. Continue every 15 minute checks for safety. 3. Encourage individual, group and milieu therapies. 4. Encourage sober living treatment after discharge at the highest level of care to which he is willing to commit. 5. He is now on a 21-day hold. We will shoot for Thursday discharge if he can get verification he will be to get his next injection. If not we will discharge Thursday. Involuntary Hold Information 96 Hour Hold: 96 Hour Involuntary Admission: Yes 96 Hour Hold Ending Date: 06/28/21 96 Hour Hold Ending Time: 00:01 Attestations NPU Medical Necessity Statement*: Psychiatric hospitalization is medically necessary to prevent access to lethal means, to reevaluate medication, and to coordinate a safe discharge. Likely length of stay is 1-4 days. Coding Level of Care Code Acute Client Integration Manager for Silvio Ramirez
[2021-07-07 14:00] VITALS: BP 103/64; PULSE 138; RESP 17; TEMP 36.6; O2SAT 96
--- NOTE | 2021-07-07 14:26 | ECG_ITS ---
[facility] Test Date: 2021-07-07 Pat Name: Bret Batista Department: Room: 124 Gender: Male Research And Development Specialist: : 1990 Requested By: Puma Atkinson Order Number: [id number] Gonsalez MD: Michael Barraza M.D. Measurements Intervals [place] Rate: 92 P: 60 NC: 152 QRS: 95 QRSD: 103 T: 58 QT: 354 QTc: 438 Interpretive Statements SINUS RHYTHM BORDERLINE RIGHT AXIS DEVIATION [QRS AXIS > 90] Compared to ECG 01/09/2017 21:16:27 Incomplete right bundle-branch block no longer present ST (T wave) deviation no longer present Early repolarization no longer present Electronically Signed On 07-07-2021 21:54:39 [employer] by Michael Barraza M.D. [id number]
--- NOTE | 2021-07-07 14:28 | PC.NURSE ---
While doing vitals Gunjan LINDSEY states Bret's HR was up in the 150's. Bret states he feels a little light headed. Dr. Atkinson notified and EKG ordered.
[2021-07-07 20:56] VITALS: RESP 18
[2021-07-08 06:00] VITALS: BP 127/82; PULSE 127; RESP 19; TEMP 36.8; O2SAT 98
[2021-07-08] MEDS: paliperidone ER 3 mg Tablet PO (07:54)
[2021-07-08] MEDS: OLANZapine 5 mg ODT PO (09:12)
[2021-07-08] MEDS: nicotine 21 mg Patch 1 PATCH TRANSDERMA (09:12)
--- NOTE | 2021-07-08 09:13 | PC.NURSE ---
PRN ZYPREXA ZYDIS 5 MG GIVEN PO PER PT REQUEST, NO OUTWARD S/S OF ANXIETY NOTED OR AGITATION.
--- NOTE | 2021-07-08 11:35 | NPU.GN ---
[facility] Group Topic:Stressors Psych Education Worksheet General Mood of Group: Bret did attend group therapy this morning. He participated with others in the group and shared experiences with others in the group and this poem writer. Bret is wanting to get discharged and seems stable at this time.
--- NOTE | 2021-07-08 14:28 | W.PM.NPUDCS ---
Diagnoses at Discharge Discharge Diagnosis (1) Methamphetamine use: Status: Acute (2) Acute psychosis: Status: Resolved (3) Homicidal ideation: Status: Acute (4) Bereavement: Status: Acute Reason for Visit Reason for Visit: 96 hour hold? Hospital Course Hospital Course He slowly acclimated to the individual, group and milieu therapies provided. He was started on Invega which was titrated to 6 mg p.o. daily. He then received the Invega 234 mg injection to the deltoid to be switched over to IM dosing. He was discharged only on the injectable. He was able to contract for safety outside the hospital prior to discharge. During the hospitalization, patient had routine laboratory studies which were within normal limits except for few outliers. Additionally there was a general medical evaluation which was also within normal limits and revealed no new acute processes. Discharge Summary: At the time of discharge, lethality was denied and psychosis was resolving. Mood and anxiety were well managed. Patient endorsed a plan to avoid all drugs of abuse and follow-up with the aftercare recommendations of the treatment team. Patient was evaluated and deemed to be absent credible lethality, and had achieved the maximum benefit from an inpatient hospitalization, so was discharged. Involuntary Hold Information 96 Hour Hold: 96 Hour Involuntary Admission: Yes 96 Hour Hold Ending Date: 06/28/21 96 Hour Hold Ending Time: 00:01 Mental Status Exam MSE Comments: This is a well-nourished, well-developed white male in hospital scrubs with adequate grooming and eye contact. No abnormal movements except. Cooperative with exam in no acute distress. Speech was more normal rate and volume. Mood described as better, affect less odd. Thought process organized, thought: Patient denied current suicidal or homicidal ideation, there were no delusions reported and less guardedness seemed present, he endorsed auditory hallucinations that are reducing. Attention and concentration appeared intact and memory appeared reliable but none were formally tested. He is alert and oriented x3. Insight and judgment are improving, impulse control is improving. Discharge Data Vitals: Last Vital Signs Temp 98.3 F 07/08/21 06:00 Pulse 127 H 07/08/21 06:00 Resp 19 H 07/08/21 06:00 BP 127/82 07/08/21 06:00 Pulse Ox 98 07/08/21 06:00 Discharge Plan Discharge Patient Disposition: Home Condition: Stable Prescriptions: New Invega Sustenna 156 mg/mL syringe 156 mg IM Q30D 30 Days Qty: 1 RF: 2 Discharge Orders: Discharge Order (Routine); Ordered 07/08/21 Ordered By: Puma Atkinson Referrals: [facility] [Outside] Discharge Diet: Regular Discharge Activity: Resume usual activity Patient Instructions: Opioid Safety Discharge Attestations NPU Time Spent in Discharge Care*: less than 30 min Specific Discharge Activities: Specific discharge activities: educating patient, discussing with correctional case records supervisor/social workers/dc planners, documenting/other paperwork and evaluating patient/reviewing data Coding Level of Care Code Acute Chg FW DC note Diagnoses Methamphetamine use F15.10 Acute psychosis F23 Homicidal ideation R45.850 Bereavement Z63.4
[2021-07-08 14:30] VITALS: BP 127/82; PULSE 127; RESP 19; TEMP 36.8; O2SAT 98
[2021-07-08] MEDS: paliperidone palmitate 156 mg Syringe IM (14:50)
--- NOTE | 2021-07-08 14:50 | PC.NURSE ---
INVHONG SUSTENNA 156 MG GIVEN IM PER PHYSICIAN ORDER, GIVEN IN RIGHT DELTOID. WILL CONT TO MONITOR INJECTION SITE FOR ANY REDNESS, SWELLING, OR IRRITATION. LOT [id number] EXP 07/2022
== END 2021-07-08 16:16 | disposition home or self-care (01) | DRG 897 ==
LOC: ER 04:41 → NP 06:44
PROVIDERS: Admitting Provider Psychiatry & Neurology Child & Adolescent Psychiatry; Emergency Provider Emergency Medicine; Visit Provider Psychiatry & Neurology Psychiatry
DX: F15.959 Other stimulant use, unspecified with stimulant-induced psychotic disorder, unspecified (principal); R45.850 Homicidal ideations; Z63.4 Disappearance and death of family member; Z81.8 Family history of other mental and behavioral disorders; F17.210 Nicotine dependence, cigarettes, uncomplicated; F12.90 Cannabis use, unspecified, uncomplicated; F15.90 Other stimulant use, unspecified, uncomplicated
CPT/HCPCS: 80053; 80306; 80307; 81003; 85025; 93005; 96372; 97150; 97165; 99285